=== PATIENT | male | born 1965 | race Native Hawaiian/Other Pacific Islander ===

== ENCOUNTER 2017-05-20 13:14 | Inpatient (IN) | payer OTHER ==
[~2017-05-20] VITALS: Ht 175.3 cm; Wt 102.5 kg
[2017-05-20] VITALS (11 sets, daily range): BP systolic 129–137; BP diastolic 70–93; PULSE 65–78; RESP 16; TEMP 97.9–98.2; O2SAT 92–99
[~2017-05-20 13:14] MED LIST: REMOVE OLD NITRO-DUR (NITROGLYCERIN) PATCH T-DERMAL ONE
[2017-05-20] MEDS ORDERED: ONDANSETRON HCL 4 MG/2 ML VIAL IV PUSH PRN (15:45)
[2017-05-20] MEDS ORDERED: HEPARIN-D5W 25,000 U/250 ML 250 ML IV PRN ×3 (15:45→20:30)
[2017-05-20] MEDS ORDERED: ACETAMINOPHEN 325 MG TAB PO PRN (15:45)
--- NOTE | 2017-05-20 15:45 | HHI.HP ---
[facility] Primary Care Physician No Primary Care Physician Admission Diagnosis NSTEMI Diagnoses: (1) NSTEMI (non-ST elevated myocardial infarction) Diagnosis: Principal Chief Complaint: chest pain Travel History International Travel<30 Days: No Contact w/Intl Traveler <30 Da: No Traveled to Known Affected Are: No History of Present Illness patient is a 51 y/p male with no significant past medical history who presented to ER with chest pain. he says that the pain started yesterday. pain was midsternal, pressure-type and constant and was associated with some numbness and tingling of both hands. he had some blurred vision with no nausea,vomiting or diaphoresis. he says that he took an aspirin yesterday evening which gradually subsided however this morning when he was going to work he started to have chest pain again which made him to come to ER. Review of Systems Constitutional: DENIES: Fever, Weight loss, Chills, Night Sweats Eyes: COMPLAINS OF: Blurred vision, DENIES: Diplopia, Vision loss, Double Vision Ears, nose, mouth, throat: DENIES: Tinnitus, Vertigo, Throat pain, Epistaxis Respiratory: DENIES: Apneas, Cough, Snoring, Wheezing, Hemoptysis, Sputum production, Shortness of breath Cardiovascular: COMPLAINS OF: Chest pain, DENIES: Palpitations, Syncope, Dyspnea on Exertion, PND, Lower Extremity Edema, Orthopnea, Claudication Gastrointestinal: DENIES: Abdominal pain, Black stools, Bloody stools, Constipation, Diarrhea, Nausea, Vomiting, Difficulty Swallowing, Anorexia Genitourinary: DENIES: Urinary frequency, Urgency, Hematuria, Dysuria Musculoskeletal: DENIES: Joint pain, Muscle aches, Stiffness, Joint Swelling Integumentary: DENIES: Rash Neurologic: DENIES: Abnormal gait, Headache, Localized weakness, Paresthesias, Seizures, Speech Problems, Tremor, Poor Balance Psychiatric: DENIES: Anxiety, Confusion, Mood changes, Depression, Hallucinations, Agitation, Suicidal Ideation, Homicidal Ideation, Delusions Past Family Social History Past Medical History not significant. Past Surgical History none reported. Reported Medications none reported. Allergies: Coded Allergies: No Known Allergies (Verified Allergy, Unknown, 05/20/17) Active Ordered Medications Inpatient Medications Sodium Chloride 1,000 ml @ 100 mls/hr Q10H IV ; Start 05/20/17 at 14:15 Family History father had a heart attack at his 40's. Social History no smoking or drinking. Physical Exam Vital Signs Vital Signs Date Time Temp Pulse Resp B/P (MAP) Pulse Ox O2 Delivery O2 Flow Rate FiO2 05/20/17 15:03 98.2 65 16 137/93 (108) 99 Physical Exam GENERAL: This is a well-nourished, well-developed patient, in no apparent distress. SKIN: No rashes, ecchymoses or lesions. Cool and dry. HEAD: Atraumatic. Normocephalic. No temporal or scalp tenderness. EYES: Pupils equal round and reactive. Extraocular motions intact. No scleral icterus. No injection or drainage. ENT: Nose without bleeding, purulent drainage or septal hematoma. Throat without erythema, tonsillar hypertrophy or exudate. Uvula midline. Airway patent. NECK: Trachea midline. No JVD or lymphadenopathy. Supple, nontender, no meningeal signs. CARDIOVASCULAR: Regular rate and rhythm without murmurs, gallops, or rubs. RESPIRATORY: Clear to auscultation. Breath sounds equal bilaterally. No wheezes , rales, or rhonchi. GASTROINTESTINAL: Abdomen soft, non-tender, nondistended. No hepato-splenomegaly , or palpable masses. No guarding. MUSCULOSKELETAL: Extremities without clubbing, cyanosis, or edema. No joint tenderness, effusion, or edema noted. No calf tenderness. Negative Homans sign bilaterally. NEUROLOGICAL: Awake and alert. Cranial nerves II through XII intact. Motor and sensory grossly within normal limits. Five out of 5 muscle strength in all muscle groups. Normal speech. Imaging EKG; sinus rhythm with T inversion in salomón-lateral leads. Caprini VTE Risk Assessment Caprini VTE Risk Assessment: Mod/High Risk (score >= 2) Caprini Risk Assessment Model Point Value = 1 Point Value = 2 Point Value = 3 Point Value = 5 Age 41-60 Minor surgery BMI > 25 kg/m2 Swollen legs Varicose veins or History of unexplained or recurrent spontaneous Oral contraceptives or hormone replacement Sepsis (< 1 month) Serious lung disease, including pneumonia (< 1 month) Abnormal pulmonary function Acute myocardial infarction Congestive heart failure (< 1 month) History of inflammatory bowel disease Medical patient at bed rest Age 61-74 Arthroscopic surgery Major open surgery (> 45 min) Laparoscopic surgery (> 45 min) Malignancy Confined to bed (> 72 hours) Immobilizing plaster cast Central venous access Age >= 75 History of VTE Family history of VTE Factor V Leiden Prothrombin [id number] Lupus anticoagulant Anticardiolipin antibodies Elevated serum homocysteine Heparin-induced thrombocytopenia Other congenital or acquired thrombophilia Stroke (< 1 month) Elective arthroplasty Hip, pelvis, or leg fracture Acute spinal cord injury (< 1 month) Prophylaxis Regimen Total Risk Factor Score Risk Level Prophylaxis Regimen 0-1 Low Early ambulation 2 Moderate Order ONE of the following: *Sequential Compression Device (SCD) *Heparin 5000 units SQ BID 3-4 Higher Order ONE of the following medications: *Heparin 5000 units SQ TID *Enoxaparin/Lovenox 40 mg SQ daily (WT < 150 kg, CrCl > 30 mL/min) *Enoxaparin/Lovenox 30 mg SQ daily (WT < 150 kg, CrCl > 10-29 mL/min) *Enoxaparin/Lovenox 30 mg SQ BID (WT < 150 kg, CrCl > 30 mL/min) AND/OR *Sequential Compression Device (SCD) 5 or more Highest Order ONE of the following medications: *Heparin 5000 units SQ TID (Preferred with Epidurals) *Enoxaparin/Lovenox 40 mg SQ daily (WT < 150 kg, CrCl > 30 mL/min) *Enoxaparin/Lovenox 30 mg SQ daily (WT < 150 kg, CrCl > 10-29 mL/min) *Enoxaparin/Lovenox 30 mg SQ BID (WT < 150 kg, CrCl > 30 mL/min) AND *Sequential Compression Device (SCD) Assessment and Plan Assessment and Plan A/P - NSTEMI continue with heparin drip- will add aspirin and low-dose BB- will start on nitro and morphine for chest pain. will continue to trend the cardiac enzymes. cardiology consulted and plan for cardiac cath tomorrow; NPO after midnight- continue to monitor on telemetry. check lipid panel. -DVT prophylaxis; on heparin drip. Discussed Condition With ER physician,the patient. Physician Certification 2 Midnight Certification Type: Admission for Inpatient Services Order for Inpatient Services The services are ordered in accordance with Medicare regulations or non- Medicare payer requirements, as applicable. In the case of services not specified as inpatient-only, they are appropriately provided as inpatient services in accordance with the 2-midnight benchmark. Estimated LOS (days): 2 days is the estimated time the patient will need to remain in the hospital, assuming treatment plan goals are met and no additional complications. Post-Hospital Plan: Home Therese Malhotra MD May 20, 2017 15:45
[2017-05-20] MEDS: SODIUM CHLOR 0.9% 1000 ML INJ 1,000 ML IV SCH (15:56)
--- NOTE | 2017-05-20 16:00 | PD.CONS ---
HPI Consult Requested By Primary Care Physician No Primary Care Physician History of Present Illness 51-year-old male with no significant past medical history who presented for chest pain. The patient states that he was walking into work for about 5 minutes yesterday and developed midsternal chest pressure that was 10/10 in severity and lasted for approximately one hour. He took some aspirin and felt like it relieved his symptoms some. He was still having 3/10 in severity chest discomfort when he went to bed last night and when he woke up today. He went to work today because it was a new job and developed severe worsening of the chest pain on the way into work today. He went to urgent care who referred him to the ED. He denies any associated shortness of breath or nausea. He states that for the past 2 weeks he's been having episodes of bilateral arm paresthesias. His father had an VA in his 40s. Nonsmoker. In the ED he was found to have elevated troponin and placed on heparin drip. Review of Systems Negative except as stated in history of present illness Past Family Social History Allergies: Coded Allergies: No Known Allergies (Verified Allergy, Unknown, 05/20/17) Past Medical History Patient denies Past Surgical History None reported Reported Medications Reported Meds & Active Scripts Active No Active Prescriptions or Reported Medications Active Ordered Medications Current Medications Medications (Trade) Dose Ordered Sig/Falguni Route Start Time Stop Time Status Last Admin Sodium Chloride 1,000 ml @ 100 mls/hr Q10H IV 05/20/17 14:15 Heparin Sodium/ Dextrose 250 ml @ 0 mls/hr TITRATE PRN IV 05/20/17 15:45 UNV (Tylenol) 650 mg Q4H PRN PO 05/20/17 15:45 UNV (Nitro-Dur 0.2 Mg Patch.24 Hr) 1 patch ONCE ONCE T-DERMAL 05/20/17 15:45 05/20/17 15:46 UNV (Morphine Inj) 2 mg Q4HR PRN IV PUSH 05/20/17 15:45 UNV (Zofran Inj) 4 mg Q8HR PRN IV PUSH 05/20/17 15:45 UNV Family History Father had a heart attack in his 40s Social History Never smoker. Rare alcohol use. Physical Exam Vital Signs Vital Signs Date Time Temp Pulse Resp B/P (MAP) Pulse Ox O2 Delivery O2 Flow Rate FiO2 05/20/17 15:03 98.2 65 16 137/93 (108 99 Physical Exam GENERAL: Well-developed well-nourished. In no acute distress. NECK: No carotid bruits. No JVD. CARDIOVASCULAR: Regular rate and rhythm. No murmur appreciated. RESPIRATORY: No accessory muscle use. Clear to auscultation. Breath sounds equal bilaterally. MUSCULOSKELETAL: No clubbing or cyanosis. No edema. NEUROLOGICAL: Awake and alert. Normal speech. Assessment and Plan Assessment and Plan 51-year-old male with no significant past medical history who presented for chest pain. The patient states that he was walking into work for about 5 minutes yesterday and developed midsternal chest pressure that was 10/10 in severity and lasted for approximately one hour. He took some aspirin and felt like it relieved his symptoms some. He was still having 3/10 in severity chest discomfort when he went to bed last night and when he woke up today. He went to work today because it was a new job and developed severe worsening of the chest pain on the way into work today. He went to urgent care who referred him to the ED. He denies any associated shortness of breath or nausea. He states that for the past 2 weeks he's been having episodes of bilateral arm paresthesias. His father had an VA in his 40s. Nonsmoker. In the ED he was found to have elevated troponin and placed on heparin drip. NSTEMI/unstable angina: EKG with T-wave inversions and anterior, lateral, and inferior leads. Continue heparin gtt. Nothing by mouth after midnight for cardiac catheterization in the a.m. Zaid Partida May 20, 2017 16:00
[2017-05-20 16:14] LABS: HEMATOCRIT 50.7 % (39.0-51.0); HEMOGLOBIN 17.2 GM/DL (13.0-17.0); MEAN CELL VOLUME 82.6 FL (80.0-100.0); MEAN CORPUSCULAR HEMOGLOBIN 27.9 PG (27.0-34.0); MEAN CORPUSCULAR HGB CONC 33.8 % (32.0-36.0); MEAN PLATELET VOLUME 9.4 FL (7.0-11.0); PLATELET COUNT 304 TH/MM3 (150-450); RED BLOOD COUNT 6.14 MIL/MM3 (4.50-5.90)
[2017-05-20 16:23] LABS: PROTHROMBIN TIME - PATIENT 10.4 SEC (9.8-11.6)
[2017-05-20] MEDS ORDERED: NITROGLYCERIN 0.2 MG/HR PATCH T-DERMAL ONE (17:00)
[2017-05-20] MEDS: ASPIRIN EC 81 MG TABEC PO SCH (18:29)
[2017-05-20] MEDS ORDERED: PILL SPLITTER OTHER PRN (18:30)
[2017-05-20] MEDS: METOPROLOL TARTRATE 25 MG TAB PO SCH (21:00)
[2017-05-21] VITALS (23 sets, daily range): BP systolic 112–149; BP diastolic 68–81; PULSE 56–82; RESP 16–20; TEMP 97.4–98.1; O2SAT 96–97
[2017-05-21] MEDS: SODIUM CHLOR 0.9% 1000 ML INJ 1,000 ML IV SCH (00:15)
[2017-05-21] MEDS ORDERED: MORPHINE SULFATE 2 MG/ML INJ IV PUSH ONE (01:30)
[2017-05-21 07:21] LABS: CHOLESTEROL/ HDL RATIO 4.83 RATIO; HDL CHOLESTEROL 34.1 MG/DL (40.0-60.0)
--- NOTE | 2017-05-21 07:56 | HHI.PR ---
Subjective Remarks The patient is in bed, he appears in not acute distress at this time. Says he has less chest pain or pressure no nausea or vomiting no diarrhea or constipation. The patient complains of headaches. No palpitations no diaphoresis. He complains of some epigastric pain and pressure in his chest intermittent, not at this time. Status post cardiac catheterization. With multiple vessel disease patient is CABG. Cardiothoracic surgeon was consulted. Objective Vitals Vital Signs Date Time Temp Pulse Resp B/P (MAP) Pulse Ox O2 Delivery O2 Flow Rate FiO2 05/21/17 06:00 56 05/21/17 05:00 60 05/21/17 04:00 60 05/21/17 03:00 58 05/21/17 03:00 98.1 72 16 112/68 (83) 97 05/21/17 02:00 66 05/21/17 01:00 66 05/21/17 00:00 97.9 80 16 146/75 (98) 97 05/21/17 00:00 72 05/20/17 23:00 69 05/20/17 22:00 72 05/20/17 21:00 72 05/20/17 20:00 97.9 72 16 129/70 (89) 92 05/20/17 20:00 72 05/20/17 19:00 74 05/20/17 18:07 75 05/20/17 17:38 78 05/20/17 17:03 70 05/20/17 16:25 69 05/20/17 15:15 65 05/20/17 15:03 98.2 65 16 137/93 (108) 99 I/O 05/20/17 05/20/17 05/20/17 05/21/17 05/21/17 05/21/17 07:00 15:00 23:00 07:00 15:00 23:00 Intake Total 250 ml 480 ml Output Total 660 ml Balance 250 ml -180 ml Intake Oral 250 ml 480 ml Output Urine Total 660 ml Stool Total 0 ml Result Diagram: 05/20/17 1549 Imaging Last Impressions Lower Extremity Ultrasound 05/21/17 0000 Signed Impressions: Service Date/Time: Sunday, May 21, 2017 11:34 - CONCLUSION: 1. Lower extremity mapping, as above. Ruben Brody MD Carotid Artery Ultrasound 05/21/17 0000 Signed Impressions: Service Date/Time: Sunday, May 21, 2017 11:53 - CONCLUSION: 1. No significant atherosclerotic disease or stenosis is present within either internal carotid artery. 2. There is antegrade flow in both vertebral arteries. Jayden Messina MD Objective Remarks GENERAL: This is a well-nourished, well-developed patient, in no apparent distress. CARDIOVASCULAR: Regular rate and rhythm without murmurs, gallops, or rubs. RESPIRATORY: Clear to auscultation. Breath sounds equal bilaterally. No wheezes , rales, or rhonchi. GASTROINTESTINAL: Abdomen soft, non-tender, nondistended. No hepato-splenomegaly , or palpable masses. No guarding. MUSCULOSKELETAL: Extremities without clubbing, cyanosis, or edema. No joint tenderness, effusion, or edema noted. No calf tenderness. Negative Homans sign bilaterally. NEUROLOGICAL: Awake and alert. Cranial nerves II through XII intact. Motor and sensory grossly within normal limits. Five out of 5 muscle strength in all muscle groups. Normal speech. A/P Problem List: (1) NSTEMI (non-ST elevated myocardial infarction) ICD Code: I21.4 - Non-ST elevation (NSTEMI) myocardial infarction Assessment and Plan NSTEMI EKG: sinus rhythm with T inversion in salomón-lateral leads. Continue with heparin drip- will add aspirin and low-dose BB- Continue on nitro and morphine for chest pain. Cardiology consulted and plan for cardiac cath 05/21/17 With multiple vessel disease patient is CABG. Cardiothoracic surgeon was consulted. Check lipid panel. -DVT prophylaxis: on heparin drip. Discussed Condition With patient, nurse Valencia Byrnes MD May 21, 2017 07:56
[2017-05-21] MEDS ORDERED: REMOVE OLD NITRO-DUR (NITROGLYCERIN) PATCH T-DERMAL ONE ×2 (09:00→17:00)
[2017-05-21] MEDS ORDERED: NITROGLYCERIN INJ 5 ML ONE (09:10)
[2017-05-21] MEDS ORDERED: HEPARIN SODIUM - IV 10,000 UNITS/10 ML VIAL ONE (09:10)
[2017-05-21] MEDS ORDERED: HEPARIN-NS/PF INJ 1,000 ML ONE (09:10)
[2017-05-21] MEDS ORDERED: MIDAZOLAM HCL 2 MG/2 ML VIAL ONE (09:28)
--- NOTE | 2017-05-21 10:16 | CATHPROC ---
[employer] HIS Report Study Information Study Number Admission Scheduled Start Study Start [id number] May 20 2017 2:56PM 05/21/2017 05/21/2017 [place] [facility] Cardiac Catheterization Admit Source Facility Department Emergency department [facility] Physician and Clinical Staff Initial Bladimir Roa Motor Equipment SergeantJonathon Bell RN Motor Equipment Sergeantbryn Champion RN, [place] RecordMir Henao,RT(R) Scrub Alfonso Delgado RCIS(BS) Procedures Performed Procedure Location (Site) Vessel Name Coronary Angiograms LCA Left Coronary Coronary Angiograms RCA Right Coronary L Heart Cath Equipment Time Platen Builder Up Description Size Mfg Part Number Used/Scraped TRANSDUCER, TRUWAVE [id number] 09:07 CONTRER[employer]STILL[employer] * Used W/STOCKCOCK *[id number] *[id number] *[id number] 09:07 [employer] INDUSTRIES PACK, CCL CUSTOM * Used *[id number] 09:07 [employer] SUPPORT, ARTERIAL ADULT [id number] *[id number] Used [id number] 09:07 [employer] PACER PEN, SKIN DUAL W/ RULER * Used *[id number] BAND, RADIAL COMPRESSION TR [id number] 10:03 [employer] 24CM Used SHORT 24 *[id number] SHEATH, FR6 RADIAL PRELUDE 09:07 [employer] FR 6 [id number] Used EASE 11CM [id number] 09:07 [employer] WIRE, EXCHANGE 260CM 3MMJ 260CM Used *[id number] 09:07 [employer] OMNIPAQUE, 350 MG, 150ML 150ML [id number] Used [id number] 09:07 [facility] BLANKET,WARM AIR CCL * Used *[id number] History: Current Medications Medication Dosage/Unit Route Frequency Last Date/Time Taken ASA LOPRESSOR History: Allergies Allergy Reaction No Known Allergies History: Risk Factors Family History of Hypertension Dyslipidemia Previous AL Previous Heart Failure Premature CAD No No Yes No No Prior Valve Prior PCI Prior CABG Surgery No No No Cerebrovascular Peripheral Artery Chronic Lung On Dialysis Diabetes Disease Disease Disease No No No No No History: Stress Tests Stress or Imaging Studies Performed No History: Other Current Smoker No Labs Hgb (g/dl) Hct (%) WBC (l/cumm) Platelets (thousands) 11.60-17.00 35.00-51.00 4.00-11.00 150.00-450.00 17.2 50.7 11 304 Glucose (mg/dl) BUN (mg/dl) Creatinine (mg/dl) BUN:Creatinine (1:x) 74.00-106.00 7.00-18.00 0.50-1.30 10.00-20.00 243 11 0.8 13.8 Na (meq/l) K (meq/l) Cl (meq/l) CO2 (mmol/L) Ca (mg/dl) 136.00-145.00 3.50-5.10 98.00-107.00 21.00-32.00 8.50-10.10 135 4.1 102 26 8.9 PT (sec) PTT (sec) INR (PTT:PT) 9.80-11.60 24.30-30.10 0.90-1.10 10 27 1 Troponin I (ng/ml) Troponin T (ng/ml) CPK (u/l) CPK-MB (ng/ML) 0.02-0.05 0.40-2.10 26.00-308.00 0.50-3.60 24.6 22.9 419 36.8 Medication Medication Total Dose (Bolus/Oral) Medication Total Dosage/Unit 1% XYLOCAINE 5 mL FENTANYL 50 mcg HEPARIN 5000 units NTG (IC) 200 mcg VERSED 1 mg Medications (Bolus/Oral) Medication Time Given Dosage/Unit Administered By Reason VERSED 05/21/2017 9:45:01 AM 1 mg [place] Champion RN 1 mg VERSED given in lab by [place] Champion RN in Left Antecubital via Peripheral IV. FENTANYL 05/21/2017 9:47:51 AM 50 mcg [place] Champion RN 50 mcg FENTANYL given in lab by [place] Champion RN in Left Antecubital via Peripheral IV. 1% XYLOCAINE 05/21/2017 9:48:37 AM 5 mL [place] Champion RN 5 mL 1% XYLOCAINE given in lab by [place] Champion RN in Right Radial via Subcutaneous. NTG (IC) 05/21/2017 9:51:00 AM 200 mcg Bladimir New 200 mcg NTG (IC) given in lab by Bladimir New in Right Radial via Intra-coronary. HEPARIN 05/21/2017 9:51:01 AM 5000 units [place] Champion RN 5000 units HEPARIN given in lab by [place] Champion RN in Left Antecubital via Peripheral IV. Medication (Drip) Medication Time Given Dosage/Unit Concentration/Unit Diluent (ml) Solutio n IV Solutions 05/21/2017 9:26:09 AM 0 mL (IV) 500 NaCl .9 IV Solutions given in lab by Jonathon Edwards RN in Left Antecubital via Peripheral IV. Pump/Drip Flow = 20 ml/hr using NaCl .9. Initial Case Assessment Cardiovascular HR Rhythm NIBP Chest Pain 69 Sinus 157/89 0 Edema Present Skin color Skin None Normal Warm Dry Neurological State Oriented to time-place- Alert Moves all extremities person Respiration - General Respiration Rate SpO2 (%) O2 (lpm) (B/min) 15 97 0 Final Case Assessment Cardiovascular HR Rhythm NIBP Chest Pain 70 Sinus 138/71 0 Edema Present Skin color Skin None Normal Warm Dry Circulatory - Right Pulses Dorsalis Pedis Femoral Radial 2 2 2 Scale (0,1,2,3,4,d) Scale (0,1,2,3,4,d) Neurological State Oriented to time-place- Alert Moves all extremities person Respiration - General Respiration Rate SpO2 (%) O2 (lpm) (B/min) 12 99 0 Chronological Log Time Study Chronological Log 9:16:25 Patient arrived via Bed. 9:19:30 Patient Name, D.O.B, / Armband Verified By R.N. 9:19:30 Consent signed by the physician and the patient and verified by the [facility] staff. 9:19:31 Pre-op and post- op instructions given; patient acknowledges understanding of instructions. 9:19:32 Verbal Stimulation=2 Physical Stimulation=2 Airway=2 Respiration=2 TOTAL=8. (0=absent, 1=li mited, 2=present) 9:19:33 Presedation assessment performed by [facility] RN. 9:19:35 Allens test performed on the right radial and ulnar artery. 9:19:37 Patient has been NPO for More than 6Hrs. 9:24:50 Skin Breakdown- none per patient. 9:25:42 Patient Warmer Placed on the Table. 9:25:43 Estefany Prominences Protected 9:26:09 A # 20 IV was noted in the Antecubital (left). Grade = 0 IV Solutions given in lab by Jonathon Edwards, RN in Left Antecubital via Peripheral IV. Pump/Drip Flow = 20 ml/hr using 9:26:09 NaCl .9. 9:26:11 History and physical on the chart or being dictated. Assessment: Initial Case, HR=69 BPM, Rhythm=Sinus, SOQD=545/89 mmhg, Chest Pain=0, Edema=None, Color=Normal, Skin = Warm, Dry 9:26:12 Neurological: State=Alert, Ox3, PORTILLO Respiration: Resp=15 B/min, SpO2=97 %, O2=0 lpm Vitals capture started with the following parameters, Patient=Adult, Interval=5 min, Initial Pre fzcar=149 mmHg, 9:26:15 Deflation Rate=5 mmHg, Cuff placed on Right Arm 9:26:32 Reference ECG taken 9:27:44 HR=67 bpm, AGIH=163/89 mmhg, SpO2=97.0 %, Resp=17 B/min, Pain=0, Vicky=10, Osorio=2 9:30:19 Right Radial and groin(s) prepped with 2% chlorhexidine, and draped after a 3 min. waiting t gloria. 9:31:50 HR=69 bpm, LSIQ=897/89 mmhg, SpO2=97.0 %, Resp=30 B/min, Pain=0, Vicky=10, Osorio=2 9:32:48 paged 9:34:38 Pressure channel 1 zeroed. 9:36:49 HR=73 bpm, DEHQ=612/97 mmhg, SpO2=97.0 %, Resp=13 B/min, Pain=0, Vicky=10, Osorio=2 9:41:48 HR=69 bpm, PLKB=614/89 mmhg, SpO2=94.0 %, Resp=19 B/min, Pain=0, Vicky=10, Osorio=2 9:44:37 MD arrived. 9:45:01 1 mg VERSED given in lab by [place] Champion RN in Left Antecubital via Peripheral IV. 9:46:49 HR=69 bpm, YOXY=745/82 mmhg, SpO2=94.0 %, Resp=19 B/min, Pain=0, Vicky=10, Osorio=2 Time Out. Correct patient, correct procedure, correct physician, power injector not loaded with contrast with surgical 9:47:23 team present. Time Out Concurred by and individual staff in procedure. 9:47:51 50 mcg FENTANYL given in lab by [place] Champion RN in Left Antecubital via Peripheral IV. 9:48:00 Case Start 9:48:37 5 mL 1% XYLOCAINE given in lab by [place] Champion RN in Right Radial via Subcutaneous. 9:50:44 Access site was Radial Artery. A SHEATH, FR6 RADIAL PRELUDE EASE 11CM FR 6 was advanced into the Radial (right) using the Matt perez 9:50:51 technique. A JR 5.0 INFINITI CATHETER FR 6 was advanced over a wire. OMNIPAQUE, 350 MG, 150ML 150ML was use d for 9:50:59 injections. 9:51:00 200 mcg NTG (IC) given in lab by Bladimir New in Right Radial via Intra-coronary. 9:51:01 5000 units HEPARIN given in lab by [place] Champion RN in Left Antecubital via Peripheral IV. Recorded Pressure: LV, HR=76, Condition=Condition 1 9:51:27 (Left Ventricle) LV 117/4/27 9:51:52 HR=70 bpm, UBZC=364/67 mmhg, Resp=16 B/min, Pain=0, Vicky=10, Osorio=2 Recorded Pressure: Ao, HR=71, Condition=Condition 1 9:52:13 (Aorta) Ao 127/73/96 9:52:50 The RCA was injected and visualized at various angles. OMNIPAQUE, 350 MG, 150ML 150ML used. After removing the current catheter a JL 3.5 INFINITI CATHETER FR 5 was advanced over a WIRE, EX CHANGE 260CM 9:53:49 3MMJ 260CM. Recorded Pressure: LV, Ao, HR=75, Condition=Condition 1 9:55:29 (Left Ventricle) LV 117/9/28, (Aorta) Ao 117/70/92 9:57:24 HR=72 bpm, FCAC=035/75 mmhg, SpO2=95.0 %, Resp=15 B/min, Pain=0, Vicky=10, Osorio=2 9:58:09 The LCA was injected and visualized at various angles. OMNIPAQUE, 350 MG, 150ML 150ML used. 10:01:42 Catheter was removed 10:01:48 Case End 10:01:50 HR=72 bpm, GDYW=199/71 mmhg, SpO2=96.0 %, Resp=15 B/min, Pain=0, Vicky=10, Osorio=2 Assessment: Final Case, HR=70 BPM, Rhythm=Sinus, CERV=860/71 mmhg, Chest Pain=0, Edema=None, Color=Normal, Skin = Warm, Dry 10:03:17 Right Pulses: Wilbert Ped=2, Femoral=2, Radial=2 Neurological: State=Alert, Ox3, PORTILLO Respiration: Resp=12 B/min, SpO2=99 %, O2=0 lpm 10:04:11 Cine recording checked. Radial Compression Device Used. 12 mLs of air placed in BAND, RADIAL COMPRESSION TR SHORT 24 2 4CM. Affected 10:04:17 hand 97 % O2 saturation. 10:05:43 Bedside Report will be given. 10:06:26 Vitals capture stopped. 10:06:58 A Left Heart Cath was performed. 10:07:04 [facility] Study - Contrast Media Used In Study Contrast Total Opened (mL) Total Used (mL) Total Wasted (mL) Omnipaque 150 60 90 End Study - Maximum Contrast Load Max Contrast Load (mL) 663.6 End Study - Radiation Exposure Fluoro Time (minutes) 5.8 End Study - Patient Disposition Complications Transferred To Interventional Outcome No Telemetry Bed No attempt made
--- NOTE | 2017-05-21 10:59 | MA ---
cc: JAUN BENITEZ DATE 05/21/2017 INDICATION Non-ST elevation [place]. PROCEDURE PERFORMED 1. Fluoroscopy with interpretation. 2. Coronary angiography. 3. Left heart catheterization. METHOD The risks, benefits and alternatives were discussed with the patient. The patient understood and consented to the procedure. The patient was brought into the catheterization lab and placed on the catheterization table. The right wrist was prepped and draped in sterile fashion. The right wrist was anesthetized with 2% lidocaine. The right radial artery was cannulated and a 6 Kiswahili, 7 cm sheath was placed without difficulty. 200 mcg of intra-arterial nitroglycerin was administered. 5000 units of intravenous heparin was administered. LEFT HEART CATHETERIZATION Intraventricular hemodynamics measured at 117/9 mmHg. CORONARY ANGIOGRAPHY 1. The left main was angiographically normal. 2. The left anterior descending coronary has a 80% stenosis in the proximal segment. There is a subtotally occluded small to moderate size diagonal branch at the ostium. There is a 95% stenosis in the midsegment but the distal left anterior descending coronary has mild luminal irregularities. 3. The left circumflex coronary artery is codominant and has 30% stenosis in the midsegment. There is a first obtuse marginal branch which appears small caliber size and there is stump occlusion in the proximal segment. There are some faint collaterals filling in distally but the vessel size is less than 2.0 mm in diameter. 4. The right coronary is a co-dominant vessel giving rise to a posterior descending branch. The right coronary comes off slightly anteriorly. The midsegment has 90% stenosis throughout. The posterior descending branch is widely patent. CONCLUSIONS 1. Severe three-vessel ramona coronary artery disease. 2. Thrombotically occluded small first obtuse marginal branch which is the culprit vessel. 3. Normal left-sided filling pressures. PLAN Given the diffuse nature of the disease I think coronary bypass surgery would be the best consideration. There are good targets in the right coronary and left anterior descending and possibly the diagonal branch. The first obtuse marginal branch is likely too small to graft. We will continue with aggressive medical therapy, follow-up with a 2-D echocardiogram. Will consult cardiothoracic surgery. MD AUBREY Alcantara/DEJON /10:06 AM /10:34 AM
[2017-05-21] MEDS ORDERED: CEFAZOLIN INJ 500 MG in SODIUM CHLORIDE 0.9% IRR BTL 500 ML IRRIGATION SCH (11:00)
[2017-05-21] MEDS ORDERED: METOPROLOL TARTRATE 25 MG TAB PO SCH (11:00)
[2017-05-21] MEDS ORDERED: DEXTROSE 50% IN WATER 50 ML VIAL(D50) IV PUSH PRN (11:00)
[2017-05-21] MEDS ORDERED: PAPAVERINE INJ 60 MG, NITROGLYCERIN INJ 100 MCG, DILTIAZEM INJ 100 MG in SODIUM CHLORID... IRRIGATION SCH (11:00)
[2017-05-21] MEDS ORDERED: INSULIN REGULAR (IV INFUSION) 100 UNITS in SODIUM CHLORIDE 0.9% INJ 99 ML IV PRN (11:00)
[2017-05-21] MEDS ORDERED: SODIUM CHLORIDE 0.9% FLUSH 10 ML FLUSH IV FLUSH PRN (11:00)
[2017-05-21] MEDS ORDERED: CHLORHEXIDINE GLUCONATE 4% SOLN 120 ML BTL TOPICAL SCH (11:00)
[2017-05-21] MEDS ORDERED: IOHEXOL 350 MG/ML 100 ML BTL (for Cath Lab) OTHER ONE (11:43)
[2017-05-21] MEDS: ASPIRIN EC 81 MG TABEC PO SCH (11:54)
[2017-05-21] MEDS: ACETAMINOPHEN/HYDROcodone 325 MG/5 MG TAB PO PRN ×2 (11:54→17:11)
[2017-05-21] MEDS: ATORVASTATIN 40 MG TAB PO SCH (11:54)
[2017-05-21] MEDS: METOPROLOL TARTRATE 25 MG TAB PO SCH ×2 (11:54→21:10)
--- NOTE | 2017-05-21 12:27 | RADRPT ---
EXAM DATE/TIME: 05/21/2017 11:27 [facility] COMPARISON: No previous studies available for comparison. INDICATIONS : Preop cardiac surgery. MEDICAL HISTORY : Myocardial infarction. Chest pain. SURGICAL HISTORY : Cardiac cath. ENCOUNTER: Initial ACUITY: 1 day PAIN SCORE: 0/10 LOCATION: Bilateral leg. TECHNIQUE: Venous ultrasound of the left and right leg was performed from the inguinal ligament to the proximal calf. Real-time, color Doppler and spectral tracing, compression and augmentation techniques were us ed. FINDINGS: RIGHT LEG: There is normal compressibility of the deep venous system from the inguinal region to the proximal ca lf. No echogenic clot is seen in the lumen of the common femoral, femoral, popliteal, and posterior tibial veins. There is a normal response of the venous system to proximal and distal augmentation an d respiration. LEFT LEG: There is normal compressibility of the deep venous system from the inguinal region to the proximal ca lf. No echogenic clot is seen in the lumen of the common femoral, femoral, popliteal, and posterior tibial veins. There is a normal response of the venous system to proximal and distal augmentation an d respiration. CONCLUSION: No DVT is identified within either lower extremity. Jayden Messina MD on May 21, 2017 at 12:24 Board Certified Radiologist. This report was verified electronically.
--- NOTE | 2017-05-21 12:54 | PD.CAR.PN ---
CVT Progress Note Subjective/Hospital Course: Pt examined and chart reviewed. Full consult dictated. Planned OR on Wednesday as long as he remains pain-free. Awaiting ECHO results. Thanks!!!! Objective: Vital Signs Date Time Temp Pulse Resp B/P (MAP) Pulse Ox O2 Delivery O2 Flow Rate FiO2 05/21/17 06:00 56 05/21/17 05:00 60 05/21/17 04:00 60 05/21/17 03:00 58 05/21/17 03:00 98.1 72 16 112/68 (83) 97 05/21/17 02:00 66 05/21/17 01:00 66 05/21/17 00:00 97.9 80 16 146/75 (98) 97 05/21/17 00:00 72 05/20/17 23:00 69 05/20/17 22:00 72 05/20/17 21:00 72 05/20/17 20:00 97.9 72 16 129/70 (89) 92 05/20/17 20:00 72 05/20/17 19:00 74 05/20/17 18:07 75 05/20/17 17:38 78 05/20/17 17:03 70 05/20/17 16:25 69 05/20/17 15:15 65 05/20/17 15:03 98.2 65 16 137/93 (108) 99 Labs: Laboratory Tests Test 05/21/17 04:43 05/21/17 11:10 Triglycerides Level 108 MG/DL (42-150) Cholesterol Level 165 MG/DL (120-200) LDL Cholesterol 109 MG/DL (0-99) HDL Cholesterol 34.1 MG/DL (40.0-60.0) Cholesterol/HDL Ratio 4.83 RATIO Activated Partial Thromboplast Time 71.3 SEC (24.3-30.1) Result Diagram: 05/20/17 1549 Marcelo Perrin MD May 21, 2017 12:54
--- NOTE | 2017-05-21 13:01 | RADRPT ---
EXAM DATE/TIME: 05/21/2017 11:53 [facility] COMPARISON: No previous studies available for comparison. INDICATIONS : PreOp Cardiac Surgery. MEDICAL HISTORY : Myocardial infarction. Chest pain. SURGICAL HISTORY : Cardiac cath. ENCOUNTER: Initial ACUITY: 1 day PAIN SCORE: 0/10 LOCATION: Bilateral neck PEAK SYSTOLIC VELOCITIES (cm/sec): ICA/CCA RATIO: Right: 0.9 Left: 0.8 ICA: Right: 62 Left: 63 CCA: Right: 66 Left: 78 ECA: Right: 81 Left: 90 VERTEBRAL: Right: 33 antegrade Left: 33 antegrade Elevated flow velocities and ICA/CCA ratios have been found to correlate with increased degrees of vessel stenosis, calculated as percentage of diameter relative to a normal segment of distal ICA/CCA FINDINGS: RIGHT CAROTID: No significant stenosis is visualized. There is mild noncalcified plaque in the distal common caroti d artery. The waveforms are within normal limits. LEFT CAROTID: No significant stenosis is visualized. The waveforms are within normal limits. VERTEBRAL ARTERIES: Antegrade flow is seen in both vertebral arteries. MISCELLANEOUS: None. CONCLUSION: 1. No significant atherosclerotic disease or stenosis is present within either internal carotid arter y. 2. There is antegrade flow in both vertebral arteries. Jayden Messina MD on May 21, 2017 at 12:57 Board Certified Radiologist. This report was verified electronically.
--- NOTE | 2017-05-21 13:04 | RADRPT ---
EXAM DATE/TIME: 05/21/2017 11:34 [facility] COMPARISON: No previous studies available for comparison. INDICATIONS : PreOp Cardiac Surgery. MEDICAL HISTORY : Myocardial infarction. Chest pain. SURGICAL HISTORY : Cardiac cath. ENCOUNTER: Initial ACUITY: 1 day PAIN SCORE: 0/10 LOCATION: Bilateral legs. GREATER SAPHENOUS VEIN THIGH: PROXIMAL: Right 5 mm Left 5 mm MID: Right 3 mm Left 3 mm DISTAL: Right 2 mm Left 2 mm CALF: PROXIMAL: Right Non-visualized Left 1 mm MID: Right Non-visualized Left Non-visualized DISTAL: Right Non-visualized Left Non-visualized FINDINGS: The venous system of the lower extremities are patent by color Doppler imaging. Measurements of the leg veins (in mm) are listed above. CONCLUSION: 1. Lower extremity mapping, as above. Ruben Brody MD on May 21, 2017 at 13:01 Board Certified Radiologist. This report was verified electronically.
[2017-05-21] MEDS: MORPHINE SULFATE 2 MG/ML INJ IV PUSH PRN ×2 (13:31→22:46)
--- NOTE | 2017-05-21 13:45 | MB ---
cc: BLADIMIR ALONSO ROHIT K. M.D. KHANNA, SOHIT K. MD DATE OF CONSULTATION 05/21/[address] Bladimir alonso REASON FOR CONSULTATION Acute myocardial infarction with multi-vessel coronary disease. HISTORY Mr. Bryan is a very pleasant 51-year gentleman with no identifiable prior history who presents with a two-week history of bilateral upper extremity paresthesias, numbness and tingling with a 24-hour history of crescendo chest pain which developed on his way to work. The patient was seen in the Urgent Care and transferred to the emergency department where he was noted to have severely elevated troponins and evidence of a non-ST elevation myocardial infarction. The patient was admitted at that time and underwent a coronary angiogram today which revealed severe three-vessel coronary artery disease. I am now being consulted for surgical revascularization therapy. At the present time, he remains pain free, hemodynamically stable with no evidence of ongoing ischemia. PAST MEDICAL AND SURGICAL HISTORY Unremarkable with no identifiable issues. ALLERGIES The patient reports no KNOWN DRUG ALLERGIES. MEDICATIONS He is currently on no medications. FAMILY HISTORY Significant for premature coronary artery disease with the father having a myocardial infarction in his 40s. SOCIAL HISTORY Denies any history of smoking, alcohol use or illicit drug use. REVIEW OF SYSTEMS As above, all other parameters are negative. PHYSICAL EXAM Today, he is 175 cm tall, weighs 106 kg, blood pressure is 112/68 with a heart rate of 56 which is regular, respiratory rate is 18 and afebrile. HEENT: Normocephalic, atraumatic. Pupils are round and reactive. Extraocular muscles intact. No cervical lymphadenopathy, carotid bruits or JVD. CARDIOVASCULAR: Regular rate and rhythm. Normal S1-S2 without gallops, rubs or murmurs. LUNGS: Clear to auscultation bilaterally with good exchange. ABDOMEN: Soft, nontender and nondistended with normoactive bowel sounds. No hepatosplenomegaly. EXTREMITIES: Bilateral lower extremity pulses are intact without cyanosis, clubbing or edema. No venous varicosities. NEUROLOGIC: Intact with no focal deficits. IMPRESSION 1. Acute myocardial infarction - non-STEMI 2. Multivessel coronary artery disease. 3. 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 PLAN The clinical and angiographic findings were discussed in detail with the patient today, his and other family members. Therapeutic options available including coronary artery bypass grafting was recommended. I agree with Dr. Alonso that he will maximally benefit from bypass of his LAD, RPDA, as well as potentially a small first diagonal branch, although that will be explored intraoperatively and determined if it is a bypassable candidate. The risks, complications, and benefits of the surgical procedure were reviewed in detail and all questions answered. They appear to comprehend the given information and are agreeable with the planned operation. We will plan on proceeding with the surgical procedure as described above on Wednesday to allow his heart to recover from the acute event as well as to complete his workup including an echocardiogram to ascertain his ventricular function. In the meantime, we will also obtain vein mapping, PFTs and carotid duplex imaging as well. Thank you for allowing me to participate this patient's care. Marcelo RAMIREZ /12:58 PM /1:11 PM ELÍAS
[2017-05-21 17:33] LABS: HEMOGLOBIN A1C 9.4 % (4.3-6.0)
[2017-05-21 17:33] LABS: HEMATOCRIT 44.2 % (39.0-51.0); MEAN CELL VOLUME 83.1 FL (80.0-100.0); MEAN CORPUSCULAR HEMOGLOBIN 28.1 PG (27.0-34.0); MEAN CORPUSCULAR HGB CONC 33.8 % (32.0-36.0); MEAN PLATELET VOLUME 9.6 FL (7.0-11.0); PLATELET COUNT 277 TH/MM3 (150-450); RED BLOOD COUNT 5.32 MIL/MM3 (4.50-5.90); RED CELL DISTRIBUTION WIDTH 13.6 % (11.6-17.2); WHITE BLOOD COUNT 10.9 TH/MM3 (4.0-11.0)
[2017-05-21 17:48] LABS: PROTHROMBIN TIME - PATIENT 10.3 SEC (9.8-11.6)
[2017-05-21] MEDS: HEPARIN-D5W 25,000 U/250 ML 250 ML IV PRN (18:43)
--- NOTE | 2017-05-21 19:41 | EKG ---
Date Performed: 05/20/2017 Time Performed: 16:29:26 PTAGE: 51 years EKG: Sinus rhythm . Leftward axis Extensive ST-T changes may be due to myocardial ischemia Abnormal ECG Since the prior tracing, there has been no significant change PREVIOUS TRACING : 05/20/2017 16.28 DOCTOR: Mehdi Trevizo Interpretating Date/Time 05/21/2017 19:41:09
[2017-05-21] MEDS: SODIUM CHLORIDE 0.9% FLUSH 10 ML FLUSH IV FLUSH SCH (21:10)
--- NOTE | 2017-05-21 21:23 | EKG ---
Date Performed: 05/20/2017 Time Performed: 20:38:18 PTAGE: 51 years EKG: Sinus rhythm Left axis deviation Marked T wave abnormality Clinical correlation is needed for possible ischemia T his could also be related to a central neurological event Abnormal ECG NO PREVIOUS TRACING DOCTOR: Mehdi Trevizo Interpretating Date/Time 05/21/2017 21:22:40
[2017-05-21] MEDS: MUPIROCIN 2% OINT 1 APPLIC/GM SYR EACH NARE SCH (21:27)
[2017-05-21 22:33] LABS: BILIRUBIN, URINE NEG (NEG); BLOOD, URINE NEG (NEG); GLUCOSE,URINE 150 mg/dL (NEG); KETONE, URINE NEG (NEG); NITRITE,URINE NEG (NEG); PH, URINE 5.5 (5.0-8.5); URINE COLOR YELLOW (YELLW/STRAW); URINE LEUKOCYTE ESTERASE NEG (NEG)
[2017-05-22] VITALS (25 sets, daily range): BP systolic 132–162; BP diastolic 77–96; PULSE 68–86; RESP 18–20; TEMP 98.2–98.8; O2SAT 96–98
[2017-05-22] MEDS: MORPHINE SULFATE 2 MG/ML INJ IV PUSH PRN ×3 (04:46→21:17)
[2017-05-22 06:00] LABS: AUTOMATED NEUTROPHIL # 5.6 TH/MM3 (1.8-7.7); BASOPHIL # 0.1 TH/MM3 (0-0.2); BASOPHIL % 0.8 % (0.0-2.0); EOSINOPHIL # 0.5 TH/MM3 (0-0.4); EOSINOPHIL % 4.7 % (0.0-4.0); HEMATOCRIT 45.9 % (39.0-51.0); HEMOGLOBIN 15.8 GM/DL (13.0-17.0); LYMPH % 30.2 % (9.0-44.0); LYMPHOCYTE # 2.9 TH/MM3 (1.0-4.8); MEAN CELL VOLUME 82.5 FL (80.0-100.0); MEAN CORPUSCULAR HEMOGLOBIN 28.3 PG (27.0-34.0); MEAN CORPUSCULAR HGB CONC 34.4 % (32.0-36.0); MEAN PLATELET VOLUME 9.6 FL (7.0-11.0); MONO % 6.5 % (0.0-8.0); MONOCYTE # 0.6 TH/MM3 (0-0.9); NEUT % 57.8 % (16.0-70.0); PLATELET COUNT 262 TH/MM3 (150-450); RED BLOOD COUNT 5.56 MIL/MM3 (4.50-5.90); RED CELL DISTRIBUTION WIDTH 13.8 % (11.6-17.2); WHITE BLOOD COUNT 9.7 TH/MM3 (4.0-11.0)
[2017-05-22 06:16] LABS: BICARBONATE 24.6 MEQ/L (21.0-32.0); CALCIUM 8.7 MG/DL (8.5-10.1); CREATININE 0.73 MG/DL (0.60-1.30)
[2017-05-22] MEDS: METOPROLOL TARTRATE 25 MG TAB PO SCH ×2 (08:31→19:45)
[2017-05-22] MEDS: ASPIRIN EC 81 MG TABEC PO SCH (08:31)
[2017-05-22] MEDS: SODIUM CHLORIDE 0.9% FLUSH 10 ML FLUSH IV FLUSH SCH ×2 (08:31→19:45)
[2017-05-22] MEDS: MUPIROCIN 2% OINT 1 APPLIC/GM SYR EACH NARE SCH ×2 (08:31→19:45)
[2017-05-22] MEDS: ATORVASTATIN 40 MG TAB PO SCH (08:31)
--- NOTE | 2017-05-22 08:36 | HHI.PR ---
Subjective Remarks Patient in the bed says he had chest pain and bilateral arm pain in the morning however he feels much better after she received morphine. No diaphoresis, nausea, lightheadedness, palpitations. No fever or chills, no nausea or vomiting no diarrhea or constipation. Objective Vitals Vital Signs Date Time Temp Pulse Resp B/P (MAP) Pulse Ox O2 Delivery O2 Flow Rate FiO2 05/22/17 06:00 74 05/22/17 05:00 72 05/22/17 04:00 98.2 75 18 139/84 (102) 97 05/22/17 04:00 75 05/22/17 03:00 73 05/22/17 02:00 70 05/22/17 01:00 71 05/22/17 00:00 98.4 68 18 132/77 (95) 98 05/22/17 00:00 68 05/22/17 00:00 Room Air 05/21/17 23:00 69 05/21/17 22:00 72 05/21/17 21:00 68 05/21/17 20:00 98.0 78 18 149/81 (103) 97 05/21/17 20:00 78 05/21/17 18:00 70 05/21/17 17:00 68 05/21/17 16:00 70 05/21/17 15:00 74 05/21/17 15:00 97.6 70 20 121/76 (91) 96 05/21/17 14:00 72 05/21/17 13:00 68 05/21/17 12:00 64 05/21/17 11:30 97.8 61 16 114/68 (83) 97 05/21/17 11:00 63 05/21/17 09:00 82 I/O 05/21/17 05/21/17 05/21/17 05/22/17 05/22/17 05/22/17 07:00 15:00 23:00 07:00 15:00 23:00 Intake Total 480 ml 480 ml 830 ml Output Total 660 ml 800 ml 1000 ml Balance -180 ml -320 ml -170 ml Intake Oral 480 ml 480 ml 720 ml IV Total 110 ml Output Urine Total 660 ml 800 ml 1000 ml Stool Total 0 ml # Bowel Movements 0 Result Diagram: 05/22/17 0450 05/22/17 0450 Imaging Last Impressions Lower Extremity Ultrasound 05/21/17 0000 Signed Impressions: Service Date/Time: Sunday, May 21, 2017 11:34 - CONCLUSION: 1. Lower extremity mapping, as above. Ruben Brody MD Carotid Artery Ultrasound 05/21/17 0000 Signed Impressions: Service Date/Time: Sunday, May 21, 2017 11:53 - CONCLUSION: 1. No significant atherosclerotic disease or stenosis is present within either internal carotid artery. 2. There is antegrade flow in both vertebral arteries. Jayden Messina MD Objective Remarks GENERAL: This is a well-nourished, well-developed patient, in no apparent distress. CARDIOVASCULAR: Regular rate and rhythm without murmurs, gallops, or rubs. RESPIRATORY: Clear to auscultation. Breath sounds equal bilaterally. No wheezes , rales, or rhonchi. GASTROINTESTINAL: Abdomen soft, non-tender, nondistended. No hepato-splenomegaly , or palpable masses. No guarding. MUSCULOSKELETAL: Extremities without clubbing, cyanosis, or edema. No joint tenderness, effusion, or edema noted. No calf tenderness. Negative Homans sign bilaterally. NEUROLOGICAL: Awake and alert. Cranial nerves II through XII intact. Motor and sensory grossly within normal limits. Five out of 5 muscle strength in all muscle groups. Normal speech. A/P Problem List: (1) NSTEMI (non-ST elevated myocardial infarction) ICD Code: I21.4 - Non-ST elevation (NSTEMI) myocardial infarction Assessment and Plan NSTEMI EKG: sinus rhythm with T inversion in salomón-lateral leads. Continue with heparin drip- will add aspirin and low-dose BB- Continue on nitro and morphine for chest pain. Cardiology consulted and plan for cardiac cath 05/21/17 With multiple vessel disease patient is CABG. Cardiothoracic surgeon was consulted. Lipid panel reviewed, start statin if LFT normal Uncontrolled diabetes mellitus and will be normal see 9.4. Insulin sliding scale, Accu-Cheks. visual educator, dietary consult. Discussed with the patient length plan. We might consider starting long acting insulin Levemir. -DVT prophylaxis: on heparin drip. Discussed Condition With patient, nurse Valencia Byrnes MD May 22, 2017 08:36
--- NOTE | 2017-05-22 10:14 | PD.CAR.PN ---
CVT Progress Note Subjective/Hospital Course: 51 yo male presenting with CP and bilateral UE paresthesias. Noted to have NSTEMI and multi-vessel CAD. 2/3 Had brief episode of CP last night. Pain-free presently OR Wednesday am Awaiting ECHO report Objective: Vital Signs Date Time Temp Pulse Resp B/P (MAP) Pulse Ox O2 Delivery O2 Flow Rate FiO2 05/22/17 10:00 78 05/22/17 09:00 72 05/22/17 08:00 68 05/22/17 08:00 96 Room Air 05/22/17 07:30 98.7 68 20 134/81 (98) 96 05/22/17 07:00 86 05/22/17 06:00 74 05/22/17 05:00 72 05/22/17 04:00 98.2 75 18 139/84 (102) 97 05/22/17 04:00 75 05/22/17 03:00 73 05/22/17 02:00 70 05/22/17 01:00 71 05/22/17 00:00 98.4 68 18 132/77 (95) 98 05/22/17 00:00 68 05/22/17 00:00 Room Air 05/21/17 23:00 69 05/21/17 22:00 72 05/21/17 21:00 68 05/21/17 20:00 98.0 78 18 149/81 (103) 97 05/21/17 20:00 78 05/21/17 18:00 70 05/21/17 17:00 68 05/21/17 16:00 70 05/21/17 15:00 74 05/21/17 15:00 97.6 70 20 121/76 (91) 96 05/21/17 14:00 72 05/21/17 13:00 68 05/21/17 12:00 64 05/21/17 11:30 97.8 61 16 114/68 (83) 97 05/21/17 11:00 63 Labs: Laboratory Tests Test 05/21/17 22:38 05/22/17 04:50 Activated Partial Thromboplast Time 31.1 SEC (24.3-30.1) 30.8 SEC (24.3-30.1) White Blood Count 9.7 TH/MM3 (4.0-11.0) Red Blood Count 5.56 MIL/MM3 (4.50-5.90) Hemoglobin 15.8 GM/DL (13.0-17.0) Hematocrit 45.9 % (39.0-51.0) Mean Corpuscular Volume 82.5 FL (80.0-100.0) Mean Corpuscular Hemoglobin 28.3 PG (27.0-34.0) Mean Corpuscular Hemoglobin Concent 34.4 % (32.0-36.0) Red Cell Distribution Width 13.8 % (11.6-17.2) Platelet Count 262 TH/MM3 (150-450) Mean Platelet Volume 9.6 FL (7.0-11.0) Neutrophils (%) (Auto) 57.8 % (16.0-70.0) Lymphocytes (%) (Auto) 30.2 % (9.0-44.0) Monocytes (%) (Auto) 6.5 % (0.0-8.0) Eosinophils (%) (Auto) 4.7 % (0.0-4.0) Basophils (%) (Auto) 0.8 % (0.0-2.0) Neutrophils # (Auto) 5.6 TH/MM3 (1.8-7.7) Lymphocytes # (Auto) 2.9 TH/MM3 (1.0-4.8) Monocytes # (Auto) 0.6 TH/MM3 (0-0.9) Eosinophils # (Auto) 0.5 TH/MM3 (0-0.4) Basophils # (Auto) 0.1 TH/MM3 (0-0.2) CBC Comment DIFF FINAL Differential Comment Blood Urea Nitrogen 11 MG/DL (7-18) Creatinine 0.73 MG/DL (0.60-1.30) Random Glucose 167 MG/DL (74-106) Calcium Level 8.7 MG/DL (8.5-10.1) Sodium Level 135 MEQ/L (136-145) Potassium Level 3.8 MEQ/L (3.5-5.1) Chloride Level 102 MEQ/L (98-107) Carbon Dioxide Level 24.6 MEQ/L (21.0-32.0) Anion Gap 8 MEQ/L (5-15) Estimat Glomerular Filtration Rate 113 ML/MIN (>89) Result Diagram: 05/22/1744905/22/170 (1) NSTEMI (non-ST elevated myocardial infarction) Marcelo Perrin MD May 22, 2017 10:14
[2017-05-22] MEDS ORDERED: DEXTROSE 50% IN WATER 50 ML VIAL(D50) IV PUSH PRN (10:30)
[2017-05-22] MEDS ORDERED: GLUCAGON 1 MG/ML VIAL OTHER PRN (10:30)
--- NOTE | 2017-05-22 12:20 | RADRPT ---
EXAM DATE/TIME: 05/22/2017 12:11 [facility] COMPARISON: No previous studies available for comparison. INDICATIONS : Evaluate for pneumonia, pneumothorax and commuicable diseases. Pre-op for CABG. MEDICAL HISTORY : Myocardial infarction. Chest pain. SURGICAL HISTORY : Cardiac cath. ENCOUNTER: Initial ACUITY: 1 day PAIN SCORE: 0/10 LOCATION: Bilateral chest FINDINGS: PA and lateral views of the chest demonstrate the lungs to be symmetrically aerated without evidence of mass, infiltrate or effusion. The cardiomediastinal contours are unremarkable. Osseous structure s are intact. CONCLUSION: No acute disease. Amilcar Aguilar MD on May 22, 2017 at 12:15 Board Certified Radiologist. This report was verified electronically.
--- NOTE | 2017-05-22 12:39 | PD.CAR.PN ---
CVT Progress Note Subjective/Hospital Course: Pending ECHO report: Risk Model and Variables - STS Adult Cardiac Surgery Database Version 2.81 RISK SCORES About the STS Risk Calculator Procedure: CAB Only Risk of Mortality: 0.302% Morbidity or Mortality: 7.01% Long Length of Stay: 1.876% Short Length of Stay: 65.114% Permanent Stroke: 0.405% Prolonged Ventilation: 4.808% DSW Infection: 0.248% Renal Failure: 0.626% Reoperation: 3.496% Objective: Vital Signs Date Time Temp Pulse Resp B/P (MAP) Pulse Ox O2 Delivery O2 Flow Rate FiO2 05/22/17 10:00 78 05/22/17 09:00 72 05/22/17 08:00 68 05/22/17 08:00 96 Room Air 05/22/17 07:30 98.7 68 20 134/81 (98) 96 05/22/17 07:00 86 05/22/17 06:00 74 05/22/17 05:00 72 05/22/17 04:00 98.2 75 18 139/84 (102) 97 05/22/17 04:00 75 05/22/17 03:00 73 05/22/17 02:00 70 05/22/17 01:00 71 05/22/17 00:00 98.4 68 18 132/77 (95) 98 05/22/17 00:00 68 05/22/17 00:00 Room Air 05/21/17 23:00 69 05/21/17 22:00 72 05/21/17 21:00 68 05/21/17 20:00 98.0 78 18 149/81 (103) 97 05/21/17 20:00 78 05/21/17 18:00 70 05/21/17 17:00 68 05/21/17 16:00 70 05/21/17 15:00 74 05/21/17 15:00 97.6 70 20 121/76 (91) 96 05/21/17 14:00 72 05/21/17 13:00 68 Labs: Laboratory Tests Test 05/22/17 04:50 05/22/17 10:37 White Blood Count 9.7 TH/MM3 (4.0-11.0) Red Blood Count 5.56 MIL/MM3 (4.50-5.90) Hemoglobin 15.8 GM/DL (13.0-17.0) Hematocrit 45.9 % (39.0-51.0) Mean Corpuscular Volume 82.5 FL (80.0-100.0) Mean Corpuscular Hemoglobin 28.3 PG (27.0-34.0) Mean Corpuscular Hemoglobin Concent 34.4 % (32.0-36.0) Red Cell Distribution Width 13.8 % (11.6-17.2) Platelet Count 262 TH/MM3 (150-450) Mean Platelet Volume 9.6 FL (7.0-11.0) Neutrophils (%) (Auto) 57.8 % (16.0-70.0) Lymphocytes (%) (Auto) 30.2 % (9.0-44.0) Monocytes (%) (Auto) 6.5 % (0.0-8.0) Eosinophils (%) (Auto) 4.7 % (0.0-4.0) Basophils (%) (Auto) 0.8 % (0.0-2.0) Neutrophils # (Auto) 5.6 TH/MM3 (1.8-7.7) Lymphocytes # (Auto) 2.9 TH/MM3 (1.0-4.8) Monocytes # (Auto) 0.6 TH/MM3 (0-0.9) Eosinophils # (Auto) 0.5 TH/MM3 (0-0.4) Basophils # (Auto) 0.1 TH/MM3 (0-0.2) CBC Comment DIFF FINAL Differential Comment Activated Partial Thromboplast Time 30.8 SEC (24.3-30.1) 33.2 SEC (24.3-30.1) Blood Urea Nitrogen 11 MG/DL (7-18) Creatinine 0.73 MG/DL (0.60-1.30) Random Glucose 167 MG/DL (74-106) Calcium Level 8.7 MG/DL (8.5-10.1) Sodium Level 135 MEQ/L (136-145) Potassium Level 3.8 MEQ/L (3.5-5.1) Chloride Level 102 MEQ/L (98-107) Carbon Dioxide Level 24.6 MEQ/L (21.0-32.0) Anion Gap 8 MEQ/L (5-15) Estimat Glomerular Filtration Rate 113 ML/MIN (>89) Result Diagram: 2/3/18 0450 05/22/17 0450 (1) NSTEMI (non-ST elevated myocardial infarction) Marcelo Perrin MD May 22, 2017 12:39
[2017-05-22 13:46] LABS: ALBUMIN 3.2 GM/DL (3.4-5.0); DIRECT BILIRUBIN ADULT 0.1 MG/DL (0.0-0.2)
[2017-05-22 13:48] LABS: INDIRECT BILIRUBIN 0.4 MG/DL (0.0-0.8); TOTAL BILIRUBIN ADULT 0.5 MG/DL (0.2-1.0); TOTAL PROTEIN 8.8 GM/DL (6.4-8.2)
--- NOTE | 2017-05-22 14:38 | ECHRPT ---
Indication: pre-op CONCLUSIONS Normal left ventricular size. The left ventricular systolic function is moderately reduced with an estimated ejection fraction in the range of 40-45%. Akinetic apical cap wall motion. There is a possible left ventricular apical thrombus noted. Mild mitral valve regurgitation. No aortic valve regurgitation. No aortic valve stenosis. There is mild tricuspid valve regurgitation. The pulmonary valve is not well visualized. Ordering physican notified of thromus. BP: / HR: Rhythm: MEASUREMENTS (Male / Female) Normal Values Technical Quality:Technically difficult study 2D ECHO LV Diastolic Diameter PLAX 4.2 cm 4.2 - 5.9 / 3.9 - 5.3 cm LV Systolic Diameter PLAX 3.5 cm IVS Diastolic Thickness 1.0 cm 0.6 - 1.0 / 0.6 - 0.9 cm LVPW Diastolic Thickness 1.0 cm 0.6 - 1.0 / 0.6 - 0.9 cm LV Relative Wall Thickness 0.5 RV Internal Dim ED PLAX 3.0 cm M-MODE Aortic Root Diameter MM 3.5 cm LA Systolic Diameter MM 3.1 cm LA Ao Ratio MM 0.9 AV Cusp Separation MM 1.8 cm DOPPLER LV E' Lateral Velocity 8.3 cm/s LV E' Septal Velocity 6.8 cm/s FINDINGS LEFT VENTRICLE Normal left ventricular size. The left ventricular systolic function is moderately reduced with an estimated ejection fraction in the range of 40-45%. Akinetic apical cap wall motion. There is a possible left ventricular apical thrombus noted. RIGHT VENTRICLE Normal right ventricular size and systolic function. LEFT ATRIUM The left atrial size is normal. RIGHT ATRIUM The right atrial size is normal. ATRIAL SEPTUM Normal atrial septal thickness without atrial level shunting by limited color doppler interrogation. AORTA The aortic root and proximal ascending aorta are normal in size on limited imaging. MITRAL VALVE Structurally normal mitral valve. Mild mitral valve regurgitation. AORTIC VALVE No aortic valve regurgitation. No aortic valve stenosis. Trileaflet aortic valve. TRICUSPID VALVE Structurally normal tricuspid valve. There is mild tricuspid valve regurgitation. PULMONARY VALVE The pulmonary valve is not well visualized. VESSELS The inferior vena cava is normal in size. PERICARDIUM No pericardial effusion. Darrell Murrell MD (Electronically Signed) Final Date:22 May 2017 14:37
--- NOTE | 2017-05-22 15:28 | EKG ---
Date Performed: 05/22/2017 Time Performed: 05:14:18 PTAGE: 51 years EKG: Diffuse ST-T wave change anterolaterally and inferiorly, ischemia should be considered. Axi s borderline leftward Compared to previous tracing, the ST-T changes persist. Clinical correlation st rongly recommended. Abnormal ECG PREVIOUS TRACING : 05/20/2017 20.38.18 DOCTOR: Ralph Castro Interpretating Date/Time 05/22/2017 15:27:50
[2017-05-23] VITALS (23 sets, daily range): BP systolic 140–157; BP diastolic 82–95; PULSE 64–96; RESP 16–20; TEMP 98–98.5; O2SAT 95–98
[2017-05-23] MEDS: HEPARIN-D5W 25,000 U/250 ML 250 ML IV PRN (01:51)
[2017-05-23] MEDS: MORPHINE SULFATE 2 MG/ML INJ IV PUSH PRN (03:31)
[2017-05-23 08:09] LABS: HEMATOCRIT 45.5 % (39.0-51.0); HEMOGLOBIN 15.6 GM/DL (13.0-17.0); MEAN CELL VOLUME 82.8 FL (80.0-100.0); MEAN CORPUSCULAR HEMOGLOBIN 28.4 PG (27.0-34.0); MEAN CORPUSCULAR HGB CONC 34.3 % (32.0-36.0); MEAN PLATELET VOLUME 9.6 FL (7.0-11.0); PLATELET COUNT 273 TH/MM3 (150-450); RED CELL DISTRIBUTION WIDTH 13.6 % (11.6-17.2); WHITE BLOOD COUNT 8.9 TH/MM3 (4.0-11.0)
[2017-05-23 08:26] LABS: ALBUMIN 3.3 GM/DL (3.4-5.0); AST (GOT) 29 U/L (15-37); BICARBONATE 27.2 MEQ/L (21.0-32.0); BLOOD UREA NITROGEN 11 MG/DL (7-18); CALCIUM 8.6 MG/DL (8.5-10.1); CHLORIDE 102 MEQ/L (98-107); CREATININE 0.79 MG/DL (0.60-1.30); GLOMERULAR FILTRATION RATE 103 ML/MIN (>89); GLUCOSE,RANDOM 148 MG/DL (74-106); SODIUM (NA) 136 MEQ/L (136-145)
[2017-05-23 08:29] LABS: ALKALINE PHOSPHATASE 118 U/L (45-117); ALT (GPT) 27 U/L (12-78); TOTAL BILIRUBIN ADULT 0.7 MG/DL (0.2-1.0); TOTAL PROTEIN 8.8 GM/DL (6.4-8.2)
--- NOTE | 2017-05-23 08:41 | HHI.PR ---
Subjective Remarks The patient is in bed, says he doesn't have any chest pain at this time however he experienced some right shoulder pain. No shortness of breath, diaphoresis, nausea. He was nauseated earlier today and had some epigastric pain as well. He is able to eat. No fever or chills no cough. No lower extremity edema. Objective Vitals Vital Signs Date Time Temp Pulse Resp B/P (MAP) Pulse Ox O2 Delivery O2 Flow Rate FiO2 05/23/17 08:09 97 Room Air 05/23/17 07:00 98.5 91 16 157/82 (107) 97 05/23/17 06:00 78 05/23/17 05:00 76 05/23/17 04:00 70 05/23/17 04:00 98.4 70 18 140/82 (101) 96 05/23/17 04:00 Room Air 05/23/17 03:00 72 05/23/17 02:00 74 05/23/17 01:00 75 05/23/17 00:00 98.0 77 20 146/83 (104) 97 05/23/17 00:00 77 05/23/17 00:00 Room Air 05/22/17 23:00 79 05/22/17 22:00 74 05/22/17 21:00 85 05/22/17 20:00 83 05/22/17 20:00 Room Air 05/22/17 20:00 98.2 83 20 162/96 (118) 97 05/22/17 18:00 80 05/22/17 17:00 78 05/22/17 16:00 80 05/22/17 15:33 98.8 80 20 139/78 (98) 98 05/22/17 15:00 86 05/22/17 14:00 82 05/22/17 13:00 80 05/22/17 12:00 84 05/22/17 12:00 98.2 84 20 149/86 (107) 98 05/22/17 11:00 74 05/22/17 10:00 78 05/22/17 09:00 72 I/O 05/22/17 05/22/17 05/22/17 05/23/17 05/23/17 05/23/17 07:00 15:00 23:00 07:00 15:00 23:00 Intake Total 830 ml 1280 ml 870 ml Output Total 1000 ml 850 ml 900 ml Balance -170 ml 430 ml -30 ml Intake Oral 720 ml 1120 ml 720 ml IV Total 110 ml 160 ml 150 ml Output Urine Total 1000 ml 850 ml 900 ml # Bowel Movements 0 0 Result Diagram: 05/23/17 0710 05/23/17 0710 Imaging Last Impressions Chest X-Ray 05/22/17 0000 Signed Impressions: Service Date/Time: Monday, May 22, 2017 12:11 - CONCLUSION: No acute disease. Amilcar Aguilar MD Lower Extremity Ultrasound 05/21/17 0000 Signed Impressions: Service Date/Time: Sunday, May 21, 2017 11:34 - CONCLUSION: 1. Lower extremity mapping, as above. Ruben Brody MD Carotid Artery Ultrasound 05/21/17 0000 Signed Impressions: Service Date/Time: Sunday, May 21, 2017 11:53 - CONCLUSION: 1. No significant atherosclerotic disease or stenosis is present within either internal carotid artery. 2. There is antegrade flow in both vertebral arteries. Jayden Messina MD Objective Remarks GENERAL: This is a well-nourished, well-developed patient, in no apparent distress. CARDIOVASCULAR: Regular rate and rhythm without murmurs, gallops, or rubs. RESPIRATORY: Clear to auscultation. Breath sounds equal bilaterally. No wheezes , rales, or rhonchi. GASTROINTESTINAL: Abdomen soft, non-tender, nondistended. No hepato-splenomegaly , or palpable masses. No guarding. MUSCULOSKELETAL: Extremities without clubbing, cyanosis, or edema. No joint tenderness, effusion, or edema noted. No calf tenderness. Negative Homans sign bilaterally. NEUROLOGICAL: Awake and alert. Cranial nerves II through XII intact. Motor and sensory grossly within normal limits. Five out of 5 muscle strength in all muscle groups. Normal speech. A/P Problem List: (1) NSTEMI (non-ST elevated myocardial infarction) ICD Code: I21.4 - Non-ST elevation (NSTEMI) myocardial infarction Assessment and Plan NSTEMI Left Ventricular Apical thrombus EKG: sinus rhythm with T inversion in [place]-lateral leads. Continue with heparin drip- will add aspirin and low-dose BB- Continue on nitro and morphine for chest pain. Cardiology consulted and plan for cardiac cath 05/21/17 With multiple vessel disease patient is CABG. Cardiothoracic surgeon was consulted. Per CTS high risk for CABG at this time as patient with LV apical thrombus. Cardiology ff, plan for high risk PCI on Wednesday. ECHO reviewed and discussed with the patient, EF 40-45 %, LV apical clot with potential for distal embolization and possible stroke during CABG surgery per Dr Perrin CTS. Ideally, he would need 4-6 weeks of anticoagulation therapy to allow the clot to organize or dissolve prior to proceeding with CABG, however, given his coronary anatomy, presenting NSTEMI and ongoing symptoms. Per Dr Perrin option of proceeding with CABG or performing PCI to LAD & RCA. Patient wishes to proceed with PCI to avoid the risk of operative stroke/embolization during surgery. Dr. New cardiology following also plan for PCI poss Wednesday On heparin drip Lipid panel reviewed, start statin Uncontrolled diabetes mellitus with A1C of 9.4. Insulin sliding scale, Accu- Cheks. welder assistant, dietary consult. Discussed with the patient length plan. We might consider starting long acting insulin Levemir however patient with ongoing tests/procedures, on ISS for now , monitor BS -DVT prophylaxis: on heparin drip. Discussed Condition With patient, nurse Valencia Byrnes MD May 23, 2017 08:41
[2017-05-23] MEDS: SODIUM CHLORIDE 0.9% FLUSH 10 ML FLUSH IV FLUSH SCH ×2 (09:00→20:02)
--- NOTE | 2017-05-23 10:11 | PD.CARD.PN ---
Subjective Subjective Remarks denies chest pain ,sob or palpitation (Rosamaria Bell) Objective Medications Current Medications Medications (Trade) Dose Ordered Sig/Falguni Route Start Time Stop Time Status Last Admin (Tylenol) 650 mg Q4H PRN PO 05/20/17 15:45 05/20/17 23:26 (Morphine Inj) 2 mg Q4H PRN IV PUSH 05/20/17 15:45 05/23/17 03:31 (Zofran Inj) 4 mg Q8H PRN IV PUSH 05/20/17 15:45 (Ecotrin Ec) 81 mg DAILY PO 05/20/17 18:15 05/22/17 08:31 (Lipitor) 40 mg DAILY PO 05/21/17 09:00 05/22/17 08:31 (Lopressor) 12.5 mg Q12HR PO 05/20/17 21:00 05/22/17 19:45 (Pill Splitter) 1 ea UNSCH PRN OTHER 05/20/17 18:30 (NS Flush) 2 ml BID IV FLUSH 05/21/17 21:00 05/22/17 19:45 (NS Flush) 2 ml UNSCH PRN IV FLUSH 05/21/17 11:00 Papaverine HCl 60 mg/Nitroglycerin 100 mcg/Diltiazem HCl 100 mg/Sodium Chloride 100 ml @ 0 mls/hr BULLDOZER MECHANIC IRRIGATION 05/21/17 11:00 05/28/17 10:59 Cefazolin Sodium 500 mg/Sodium Chloride 505 ml @ 0 mls/hr BULLDOZER MECH[employer]IC IRRIGATION 05/21/17 11:00 05/28/17 10:59 Cefazolin Sodium 2000 mg/Sodium Chloride 100 ml @ 200 mls/hr BULLDOZER MECHANIC IV 05/21/17 11:00 05/28/17 10:59 (Lopressor) 12.5 mg BULLDOZER MECHANIC PO 05/21/17 11:00 05/28/17 10:59 (Bactroban Nasal 2% Oint) 1 applic BID EACH NARE 05/21/17 21:00 05/26/17 20:59 05/22/17 19:45 (Hibiclens 4% Top Soln) 1 applic BULLDOZER MECH[employer]IC TOPICAL 05/21/17 11:00 05/28/17 10:59 Insulin Human Regular 100 units/ Sodium Chloride 100 ml @ 3 mls/hr TITRATE PRN IV 05/21/17 11:00 05/28/17 10:59 (D50w (Vial) Inj) 50 ml UNSCH PRN IV PUSH 05/21/17 11:00 ([place] 5-325 Mg) 1 tab Q6H PRN PO 05/21/17 11:30 05/21/17 17:11 Heparin Sodium/ Dextrose 250 ml @ 10 mls/hr TITRATE PRN IV 05/21/17 15:30 05/23/17 01:51 (D50w (Vial) Inj) 50 ml UNSCH PRN IV PUSH 05/22/17 10:30 (Glucagon Inj) 1 mg UNSCH PRN OTHER 05/22/17 10:30 Vital Signs / I&O Vital Signs Date Time Temp Pulse Resp B/P (MAP) Pulse Ox O2 Delivery O2 Flow Rate FiO2 05/23/17 08:09 97 Room Air 05/23/17 07:00 98.5 91 16 157/82 (107) 97 05/23/17 06:00 78 05/23/17 05:00 76 05/23/17 04:00 70 05/23/17 04:00 98.4 70 18 140/82 (101) 96 05/23/17 04:00 Room Air 05/23/17 03:00 72 05/23/17 02:00 74 05/23/17 01:00 75 05/23/17 00:00 98.0 77 20 146/83 (104) 97 05/23/17 00:00 77 05/23/17 00:00 Room Air 05/22/17 23:00 79 05/22/17 22:00 74 05/22/17 21:00 85 05/22/17 20:00 83 05/22/17 20:00 Room Air 05/22/17 20:00 98.2 83 20 162/96 (118) 97 05/22/17 18:00 80 05/22/17 17:00 78 05/22/17 16:00 80 05/22/17 15:33 98.8 80 20 139/78 (98) 98 05/22/17 15:00 86 05/22/17 14:00 82 05/22/17 13:00 80 05/22/17 12:00 84 05/22/17 12:00 98.2 84 20 149/86 (107) 98 05/22/17 11:00 74 I/O 05/22/17 05/22/17 05/22/17 05/23/17 05/23/17 05/23/17 07:00 15:00 23:00 07:00 15:00 23:00 Intake Total 830 ml 1280 ml 870 ml Output Total 1000 ml 850 ml 900 ml Balance -170 ml 430 ml -30 ml Intake Oral 720 ml 1120 ml 720 ml IV Total 110 ml 160 ml 150 ml Output Urine Total 1000 ml 850 ml 900 ml # Bowel Movements 0 0 Physical Exam GENERAL: SKIN: Warm and dry. HEAD: Atraumatic. Normocephalic. EYES: Pupils equal and round. ENT: No nasal bleeding or discharge. NECK: Trachea midline. No JVD. CARDIOVASCULAR: Regular rate and rhythm. no murmurs RESPIRATORY: No accessory muscle use. Clear to auscultation. Breath sounds equal bilaterally. GASTROINTESTINAL: Abdomen soft, non-tender, nondistended. MUSCULOSKELETAL: Extremities without clubbing, cyanosis, or edema. No obvious deformities. NEUROLOGICAL: Awake and alert. No obvious cranial nerve deficits. Normal speech. PSYCHIATRIC: Appropriate mood and affect; insight and judgment normal. Laboratory Laboratory Tests Test 05/22/17 10:37 05/22/17 18:57 05/23/17 01:14 05/23/17 07:10 Activated Partial Thromboplast Time 33.2 SEC 34.9 SEC 35.4 SEC 36.5 SEC White Blood Count 8.9 TH/MM3 Red Blood Count 5.50 MIL/MM3 Hemoglobin 15.6 GM/DL Hematocrit 45.5 % Mean Corpuscular Volume 82.8 FL Mean Corpuscular Hemoglobin 28.4 PG Mean Corpuscular Hemoglobin Concent 34.3 % Red Cell Distribution Width 13.6 % Platelet Count 273 TH/MM3 Mean Platelet Volume 9.6 FL Blood Urea Nitrogen 11 MG/DL Creatinine 0.79 MG/DL Random Glucose 148 MG/DL Total Protein 8.8 GM/DL Albumin 3.3 GM/DL Calcium Level 8.6 MG/DL Alkaline Phosphatase 118 U/L Aspartate Amino Transf (AST/SGOT) 29 U/L Alanine Aminotransferase (ALT/SGPT) 27 U/L Total Bilirubin 0.7 MG/DL Sodium Level 136 MEQ/L Potassium Level 3.9 MEQ/L Chloride Level 102 MEQ/L Carbon Dioxide Level 27.2 MEQ/L Anion Gap 7 MEQ/L Estimat Glomerular Filtration Rate 103 ML/MIN Imaging Last 48 hours Impressions Chest X-Ray 05/22/17 0000 Signed Impressions: Service Date/Time: Monday, May 22, 2017 12:11 - CONCLUSION: No acute disease. Amilcar Aguilar MD (Rosamaria Bell) Assessment and Plan Problem List: (1) NSTEMI (non-ST elevated myocardial infarction) ICD Codes: I21.4 - Non-ST elevation (NSTEMI) myocardial infarction Assessment and Plan 51 yo M with no prior cardiac history who presented on 05/20/17 with chest pain and NSTEMI. cardiac catheterization showed severe 3 vessel disease, CVS consulted for CABG CAD- considering CABG and followed by CVS team echo shows EF 40-45% with possible LV thrombus. consider [facility] (Rosamaria Bell) Assessment and Plan LV apical thrombus high risk for CVA with CABG discussed options of PCI and risks patient agreeable (Bladimir New MD) Rosamaria Bell May 23, 2017 10:11 Bladimir New MD May 24, 2017 09:45
[2017-05-23] MEDS: ATORVASTATIN 40 MG TAB PO SCH (10:21)
[2017-05-23] MEDS: METOPROLOL TARTRATE 25 MG TAB PO SCH ×2 (10:21→20:02)
[2017-05-23] MEDS: ASPIRIN EC 81 MG TABEC PO SCH (10:22)
[2017-05-23] MEDS: MUPIROCIN 2% OINT 1 APPLIC/GM SYR EACH NARE SCH ×2 (10:22→20:02)
--- NOTE | 2017-05-23 10:50 | PD.CAR.PN ---
CVT Progress Note Subjective/Hospital Course: Discussed ECHO findings of LV apical clot with potential for distal embolization and possible stroke during CABG surgery with the patient and with Dr. New. Ideally, he would need 4-6 weeks of anticoagulation therapy to allow the clot to organize or dissolve prior to proceeding with CABG, however, given his coronary anatomy, presenting NSTEMI and ongoing symptoms, I don't think he will be able to tolerate that. Discussed the option of proceeding with CABG or performing PCI to LAD & RCA with the pt. He wishes to proceed with PCI to avoid the risk of operative stroke/embolization during surgery. Will defer to Dr. New for further therapy. Objective: Vital Signs Date Time Temp Pulse Resp B/P (MAP) Pulse Ox O2 Delivery O2 Flow Rate FiO2 05/23/17 08:09 97 Room Air 05/23/17 07:00 98.5 91 16 157/82 (107) 97 05/23/17 06:00 78 05/23/17 05:00 76 05/23/17 04:00 70 05/23/17 04:00 98.4 70 18 140/82 (101) 96 05/23/17 04:00 Room Air 05/23/17 03:00 72 05/23/17 02:00 74 05/23/17 01:00 75 05/23/17 00:00 98.0 77 20 146/83 (104) 97 05/23/17 00:00 77 05/23/17 00:00 Room Air 05/22/17 23:00 79 05/22/17 22:00 74 05/22/17 21:00 85 05/22/17 20:00 83 05/22/17 20:00 Room Air 05/22/17 20:00 98.2 83 20 162/96 (118) 97 05/22/17 18:00 80 05/22/17 17:00 78 05/22/17 16:00 80 05/22/17 15:33 98.8 80 20 139/78 (98) 98 05/22/17 15:00 86 05/22/17 14:00 82 05/22/17 13:00 80 05/22/17 12:00 84 05/22/17 12:00 98.2 84 20 149/86 (107) 98 05/22/17 11:00 74 Labs: Laboratory Tests Test 05/23/17 01:14 05/23/17 07:10 Activated Partial Thromboplast Time 35.4 SEC (24.3-30.1) 36.5 SEC (24.3-30.1) White Blood Count 8.9 TH/MM3 (4.0-11.0) Red Blood Count 5.50 MIL/MM3 (4.50-5.90) Hemoglobin 15.6 GM/DL (13.0-17.0) Hematocrit 45.5 % (39.0-51.0) Mean Corpuscular Volume 82.8 FL (80.0-100.0) Mean Corpuscular Hemoglobin 28.4 PG (27.0-34.0) Mean Corpuscular Hemoglobin Concent 34.3 % (32.0-36.0) Red Cell Distribution Width 13.6 % (11.6-17.2) Platelet Count 273 TH/MM3 (150-450) Mean Platelet Volume 9.6 FL (7.0-11.0) Blood Urea Nitrogen 11 MG/DL (7-18) Creatinine 0.79 MG/DL (0.60-1.30) Random Glucose 148 MG/DL (74-106) Total Protein 8.8 GM/DL (6.4-8.2) Albumin 3.3 GM/DL (3.4-5.0) Calcium Level 8.6 MG/DL (8.5-10.1) Alkaline Phosphatase 118 U/L (45-117) Aspartate Amino Transf (AST/SGOT) 29 U/L (15-37) Alanine Aminotransferase (ALT/SGPT) 27 U/L (12-78) Total Bilirubin 0.7 MG/DL (0.2-1.0) Sodium Level 136 MEQ/L (136-145) Potassium Level 3.9 MEQ/L (3.5-5.1) Chloride Level 102 MEQ/L (98-107) Carbon Dioxide Level 27.2 MEQ/L (21.0-32.0) Anion Gap 7 MEQ/L (5-15) Estimat Glomerular Filtration Rate 103 ML/MIN (>89) Result Diagram: 05/23/17 0710 05/23/17 0710 (1) NSTEMI (non-ST elevated myocardial infarction) Marcelo Perrin MD May 23, 2017 10:50
[2017-05-23] MEDS ORDERED: CLOPIDOGREL 300 MG TAB PO ONE (12:30)
[2017-05-23] MEDS: INSULIN ASPART SUPPLEMENTAL SCALE SQ SCH ×3 (14:35→20:13)
[2017-05-24] VITALS (24 sets, daily range): BP systolic 123–154; BP diastolic 74–95; PULSE 62–90; RESP 14–18; TEMP 98–98.9; O2SAT 93–97
[2017-05-24] MEDS: MORPHINE SULFATE 2 MG/ML INJ IV PUSH PRN (00:16)
[2017-05-24 03:03] LABS: HEMATOCRIT 45.8 % (39.0-51.0); HEMOGLOBIN 15.4 GM/DL (13.0-17.0); MEAN CELL VOLUME 82.5 FL (80.0-100.0); MEAN CORPUSCULAR HEMOGLOBIN 27.7 PG (27.0-34.0); MEAN CORPUSCULAR HGB CONC 33.6 % (32.0-36.0); MEAN PLATELET VOLUME 9.2 FL (7.0-11.0); PLATELET COUNT 278 TH/MM3 (150-450); RED BLOOD COUNT 5.56 MIL/MM3 (4.50-5.90); RED CELL DISTRIBUTION WIDTH 13.6 % (11.6-17.2); WHITE BLOOD COUNT 9.4 TH/MM3 (4.0-11.0)
[2017-05-24] MEDS ORDERED: fentaNYL CITRATE 1000 MCG/20 ML VIAL ONE (07:00)
[2017-05-24] MEDS ORDERED: MIDAZOLAM HCL 5 MG/ML VIAL (1 ML) ONE (07:01)
[2017-05-24] MEDS: INSULIN ASPART SUPPLEMENTAL SCALE SQ SCH ×4 (08:00→21:08)
--- NOTE | 2017-05-24 08:34 | PD.CARD.PN ---
Subjective Subjective Remarks denies chest pain ,sob or palpitation Objective Medications Current Medications Medications (Trade) Dose Ordered Sig/Falguni Route Start Time Stop Time Status Last Admin (Tylenol) 650 mg Q4H PRN PO 05/20/17 15:45 05/20/17 23:26 (Morphine Inj) 2 mg Q4H PRN IV PUSH 05/20/17 15:45 05/24/17 00:16 (Zofran Inj) 4 mg Q8H PRN IV PUSH 05/20/17 15:45 (Ecotrin Ec) 81 mg DAILY PO 05/20/17 18:15 05/23/17 10:22 (Lipitor) 40 mg DAILY PO 05/21/17 09:00 05/23/17 10:21 (Lopressor) 12.5 mg Q12HR PO 05/20/17 21:00 05/23/17 20:02 (Pill Splitter) 1 ea UNSCH PRN OTHER 05/20/17 18:30 (NS Flush) 2 ml BID IV FLUSH 05/21/17 21:00 05/23/17 20:02 (NS Flush) 2 ml UNSCH PRN IV FLUSH 05/21/17 11:00 Papaverine HCl 60 mg/Nitroglycerin 100 mcg/Diltiazem HCl 100 mg/Sodium Chloride 100 ml @ 0 mls/hr RAMP JOCKEY IRRIGATION 05/21/17 11:00 05/28/17 10:59 Cefazolin Sodium 500 mg/Sodium Chloride 505 ml @ 0 mls/hr RAMP JOCKEY IRRIGATION 05/21/17 11:00 05/28/17 10:59 Cefazolin Sodium 2000 mg/Sodium Chloride 100 ml @ 200 mls/hr RAMP JOCKEY IV 05/21/17 11:00 05/28/17 10:59 (Lopressor) 12.5 mg RAMP JOCKEY PO 05/21/17 11:00 05/28/17 10:59 (Bactroban Nasal 2% Oint) 1 applic BID EACH NARE 05/21/17 21:00 05/26/17 20:59 05/23/17 20:02 (Hibiclens 4% Top Soln) 1 applic RAMP JOCKEY TOPICAL 05/21/17 11:00 05/28/17 10:59 Insulin Human Regular 100 units/ Sodium Chloride 100 ml @ 3 mls/hr TITRATE PRN IV 05/21/17 11:00 05/28/17 10:59 (D50w (Vial) Inj) 50 ml UNSCH PRN IV PUSH 05/21/17 11:00 ([place] 5-325 Mg) 1 tab Q6H PRN PO 05/21/17 11:30 05/21/17 17:11 Heparin Sodium/ Dextrose 250 ml @ 10 mls/hr TITRATE PRN IV 05/21/17 15:30 05/23/17 01:51 (D50w (Vial) Inj) 50 ml UNSCH PRN IV PUSH 05/22/17 10:30 (Glucagon Inj) 1 mg UNSCH PRN OTHER 05/22/17 10:30 (NovoLOG SUPPLEMENTAL SCALE) 1 ACHS SLIDING SCALE SQ 05/23/17 12:00 05/23/17 17:00 (Plavix) 75 mg DAILY PO 05/24/17 09:00 Vital Signs / I&O Vital Signs Date Time Temp Pulse Resp B/P (MAP) Pulse Ox O2 Delivery O2 Flow Rate FiO2 05/24/17 06:00 72 05/24/17 05:00 69 05/24/17 04:00 Nasal Cannula 2.00 05/24/17 04:00 98.0 64 18 131/76 (94) 96 05/24/17 04:00 64 05/24/17 03:00 69 05/24/17 02:00 65 05/24/17 01:00 65 05/24/17 00:00 62 05/24/17 00:00 Nasal Cannula 2.00 05/24/17 00:00 98.1 62 18 144/84 (104) 97 05/23/17 23:00 74 05/23/17 22:00 81 05/23/17 21:00 90 05/23/17 20:43 Nasal Cannula 2.00 05/23/17 20:00 Nasal Cannula 2.00 05/23/17 20:00 98.2 96 20 150/95 (113) 97 05/23/17 20:00 96 05/23/17 18:00 84 05/23/17 17:00 86 05/23/17 16:00 84 05/23/17 15:00 84 05/23/17 15:00 78 16 154/86 (108) 95 05/23/17 14:00 68 05/23/17 13:00 82 05/23/17 12:00 78 05/23/17 11:00 80 05/23/17 11:00 98.1 80 17 144/93 (110) 98 05/23/17 10:00 96 05/23/17 09:00 64 I/O 05/23/17 05/23/17 05/23/17 05/24/17 05/24/17 05/24/17 07:00 15:00 23:00 07:00 15:00 23:00 Intake Total 870 ml 1000 ml 720 ml Output Total 900 ml 1500 ml 1000 ml Balance -30 ml -500 ml -280 ml Intake Oral 720 ml 1000 ml 720 ml IV Total 150 ml Output Urine Total 900 ml 1500 ml 1000 ml # Bowel Movements 0 0 Physical Exam GENERAL: SKIN: Warm and dry. HEAD: Atraumatic. Normocephalic. EYES: Pupils equal and round. ENT: No nasal bleeding or discharge. NECK: Trachea midline. No JVD. CARDIOVASCULAR: Regular rate and rhythm. no murmurs RESPIRATORY: No accessory muscle use. Clear to auscultation. Breath sounds equal bilaterally. GASTROINTESTINAL: Abdomen soft, non-tender, nondistended. MUSCULOSKELETAL: Extremities without clubbing, cyanosis, or edema. No obvious deformities. NEUROLOGICAL: Awake and alert. No obvious cranial nerve deficits. Normal speech. PSYCHIATRIC: Appropriate mood and affect; insight and judgment normal. Laboratory Laboratory Tests Test 05/23/17 19:53 05/24/17 02:40 Activated Partial Thromboplast Time 41.1 SEC 42.4 SEC White Blood Count 9.4 TH/MM3 Red Blood Count 5.56 MIL/MM3 Hemoglobin 15.4 GM/DL Hematocrit 45.8 % Mean Corpuscular Volume 82.5 FL Mean Corpuscular Hemoglobin 27.7 PG Mean Corpuscular Hemoglobin Concent 33.6 % Red Cell Distribution Width 13.6 % Platelet Count 278 TH/MM3 Mean Platelet Volume 9.2 FL Assessment and Plan Problem List: (1) NSTEMI (non-ST elevated myocardial infarction) ICD Codes: I21.4 - Non-ST elevation (NSTEMI) myocardial infarction Assessment and Plan 51 yo M with no prior cardiac history who presented on 05/20/17 with chest pain and NSTEMI. cardiac catheterization showed severe 3 vessel disease. CTS consulted for possible CABG. echo shows EF 40-45% with possible LV thrombus. patient would require 4-6 weeks of anticoagulation to reduce intraoperative risk of stroke. CTS does not recommend waiting that long and patient is agreeable to PCI today. Rosamaria Bell May 24, 2017 08:34
[2017-05-24] MEDS: ASPIRIN EC 81 MG TABEC PO SCH (09:20)
[2017-05-24] MEDS: METOPROLOL TARTRATE 25 MG TAB PO SCH ×2 (09:21→21:07)
[2017-05-24] MEDS: ATORVASTATIN 40 MG TAB PO SCH (09:21)
[2017-05-24] MEDS: CLOPIDOGREL 75 MG TAB PO SCH (09:22)
[2017-05-24] MEDS: MUPIROCIN 2% OINT 1 APPLIC/GM SYR EACH NARE SCH ×2 (09:22→21:00)
[2017-05-24] MEDS: SODIUM CHLORIDE 0.9% FLUSH 10 ML FLUSH IV FLUSH SCH ×2 (09:22→21:00)
[2017-05-24] MEDS ORDERED: HEPARIN-NS/PF FLUSH BAG 2,000 ML IV FLUSH ONE (10:13)
[2017-05-24] MEDS ORDERED: MIDAZOLAM HCL 2 MG/2 ML VIAL ONE (10:49)
[2017-05-24] MEDS ORDERED: HEPARIN SODIUM - IV 10,000 UNITS/10 ML VIAL ONE (10:58)
[2017-05-24] MEDS ORDERED: ADENOSINE IV SOLN 3 MG/ML 2 ML VIAL ONE (11:04)
--- NOTE | 2017-05-24 11:15 | HHI.PR ---
Subjective Remarks In bed says she had less chest apoin overnight however he hasd some right shoulder pain . No diaphoreiss, nausea, palpitations. lightheadedness. Plan for PCI today patient is also complaining of right foot pain says it hurts when he is walking. Had US and negative for DVt. Will check x rays Objective Vitals Vital Signs Date Time Temp Pulse Resp B/P (MAP) Pulse Ox O2 Delivery O2 Flow Rate FiO2 05/24/17 11:00 76 05/24/17 10:00 76 05/24/17 09:00 64 05/24/17 08:00 64 05/24/17 08:00 93 Room Air 05/24/17 08:00 98.2 75 16 144/88 (106) 93 05/24/17 07:00 70 05/24/17 06:00 72 05/24/17 05:00 69 05/24/17 04:00 Nasal Cannula 2.00 05/24/17 04:00 98.0 64 18 131/76 (94) 96 05/24/17 04:00 64 05/24/17 03:00 69 05/24/17 02:00 65 05/24/17 01:00 65 05/24/17 00:00 62 05/24/17 00:00 Nasal Cannula 2.00 05/24/17 00:00 98.1 62 18 144/84 (104) 97 05/23/17 23:00 74 05/23/17 22:00 81 05/23/17 21:00 90 05/23/17 20:43 Nasal Cannula 2.00 05/23/17 20:00 Nasal Cannula 2.00 05/23/17 20:00 98.2 96 20 150/95 (113) 97 05/23/17 20:00 96 05/23/17 18:00 84 05/23/17 17:00 86 05/23/17 16:00 84 05/23/17 15:00 84 05/23/17 15:00 78 16 154/86 (108) 95 05/23/17 14:00 68 05/23/17 13:00 82 05/23/17 12:00 78 I/O 05/23/17 05/23/17 05/23/17 05/24/17 05/24/17 05/24/17 07:00 15:00 23:00 07:00 15:00 23:00 Intake Total 870 ml 1000 ml 720 ml Output Total 900 ml 1500 ml 1000 ml Balance -30 ml -500 ml -280 ml Intake Oral 720 ml 1000 ml 720 ml IV Total 150 ml Output Urine Total 900 ml 1500 ml 1000 ml # Bowel Movements 0 0 Result Diagram: 05/24/17 0240 05/23/17 0710 Imaging Last Impressions Head CT 05/24/17 0000 Signed Impressions: Service Date/Time: Wednesday, May 24, 2017 17:11 - CONCLUSION: Small nonspecific focus of diminished attenuation in the left centrum semiovale. Jayden Jordan MD Chest X-Ray 05/22/17 0000 Signed Impressions: Service Date/Time: Monday, May 22, 2017 12:11 - CONCLUSION: No acute disease. Amilcar Aguilar MD Lower Extremity Ultrasound 05/21/17 0000 Signed Impressions: Service Date/Time: Sunday, May 21, 2017 11:34 - CONCLUSION: 1. Lower extremity mapping, as above. Ruben Brody MD Carotid Artery Ultrasound 05/21/17 0000 Signed Impressions: Service Date/Time: Sunday, May 21, 2017 11:53 - CONCLUSION: 1. No significant atherosclerotic disease or stenosis is present within either internal carotid artery. 2. There is antegrade flow in both vertebral arteries. Jayden Messina MD Objective Remarks GENERAL: This is a well-nourished, well-developed patient, in no apparent distress. CARDIOVASCULAR: Regular rate and rhythm without murmurs, gallops, or rubs. RESPIRATORY: Clear to auscultation. Breath sounds equal bilaterally. No wheezes , rales, or rhonchi. GASTROINTESTINAL: Abdomen soft, non-tender, nondistended. No hepato-splenomegaly , or palpable masses. No guarding. MUSCULOSKELETAL: Right foot pain tenderness on palpation. Extremities without clubbing, cyanosis, or edema. No joint tenderness, effusion, or edema noted. No calf tenderness. Negative Homans sign bilaterally. NEUROLOGICAL: Awake and alert. Cranial nerves II through XII intact. Motor and sensory grossly within normal limits. Five out of 5 muscle strength in all muscle groups. Normal speech. A/P Problem List: (1) NSTEMI (non-ST elevated myocardial infarction) ICD Code: I21.4 - Non-ST elevation (NSTEMI) myocardial infarction Assessment and Plan NSTEMI Left Ventricular Apical thrombus EKG: sinus rhythm with T inversion in [place]-lateral leads. Continue with heparin drip- will add aspirin and low-dose BB- Continue on nitro and morphine for chest pain. Cardiology consulted and plan for cardiac cath 05/21/17 With multiple vessel disease patient is CABG. Cardiothoracic surgeon was consulted. Per CTS high risk for CABG at this time as patient with LV apical thrombus. Cardiology ff, plan for high risk PCI on Wednesday. ECHO reviewed and discussed with the patient, EF 40-45 %, LV apical clot with potential for distal embolization and possible stroke during CABG surgery per Dr Perrin CTS. Ideally, he would need 4-6 weeks of anticoagulation therapy to allow the clot to organize or dissolve prior to proceeding with CABG, however, given his coronary anatomy, presenting NSTEMI and ongoing symptoms. Per Dr Perrin option of proceeding with CABG or performing PCI to LAD & RCA. Patient wishes to proceed with PCI to avoid the risk of operative stroke/embolization during surgery. Dr. New cardiology following also plan for PCI 05/24/17 On heparin drip Lipid panel reviewed, start statin Uncontrolled diabetes mellitus with A1C of 9.4. Insulin sliding scale, Accu- Cheks. parent educator, dietary consult. Discussed with the patient length plan. We might consider starting long acting insulin Levemir however patient with ongoing tests/procedures, on ISS for now , monitor BS Right foot pain says it hurts when he is walking. Had US and negative for DVT. Ordered x rays reviewed no fracture. -DVT prophylaxis: on heparin drip. Discussed Condition With patient, nurse Valencia Byrnes MD May 24, 2017 11:15
[2017-05-24] MEDS ORDERED: CLOPIDOGREL 75 MG TAB ONE (12:13)
[2017-05-24] MEDS ORDERED: MISC INFORMATION XX ONE (12:15)
[2017-05-24] MEDS ORDERED: LORazepam 2 MG/ML VIAL IV PUSH PRN (12:15)
[2017-05-24] MEDS ORDERED: LIDOCAINE HCL 1% 50 ML VIAL INFIL PRN (12:15)
[2017-05-24] MEDS ORDERED: ATROPINE SULFATE 1 MG/ML VIAL IV PUSH PRN (12:15)
--- NOTE | 2017-05-24 12:17 | CATHPROC ---
Prezi HIS Report Study Information Study Number Scheduled Start Study Start [id number] 05/24/2017 May 24 2017 10:21AM Referring Institution Admit Source Facility Department 1 Emergency department [facility] - Volleyball Assistant Coach Physician and Clinical Staff Initial Bladimir Roa Set Key Driver Jonathon Edwards,TRIPP Set Key Driver Jacinda Bautista ,RT(R) Recorder Laurie Mullen BSN Recorder Alfonso Delgado RCIS(BS) Scrub Tyra Nunn,RT(R) Procedures Performed Procedure Location (Site) Vessel Name Coronary Angiograms LCA Left Coronary Drug Eluting Inflatio LAD Mid Left Coronary Drug Eluting Inflatio RCA Mid Right Coronary L Heart Cath PTCA LAD Mid Left Coronary PTCA RCA Mid Right Coronary Stent LAD Mid Left Coronary Wire insertion Fem Art (right) Femoral Art Equipment Time Mexican Food Cook Description Size Mfg Part Number Used/Scraped COPILOT VALVE, BLEEDBACK [id number] 10:28 [employer] Used CONTROL *[id number] WIRE, BALANCE MIDDLEWEIGHT [id number] 11:47 [employer] 300CM Used 300CM *[id number] TRANSDUCER, TRUWAVE [id number] 10:28 CONTRERAS DEL CASTILLO * Used W/STOCKCOCK *[id number] CARDIOVASCULAR CATHETER, CORONARY CLASSIC [id number] 11:05 Used SYSTEMS INC. 1.25MM *[id number] CARDIOVASCULAR WIRE, VIPER ADVANCE [id number] 11:03 Used SYSTEMS INC. CORONARY FLP *[id number] [phone] *[id number] [phone] *[id number] [phone] *[id number] 10:28 MEDLINE [employer] PACK, CCL CUSTOM * Used *[id number] [id number] 10:28 [employer] PACER PEN, SKIN DUAL W/ RULER * Used *[id number] BALLOON, 1.25 X 6MM SPRINTER [id number] 11:00 MEDTRONIC 6MM Used LEGEND OTW *[id number] [id number] 11:59 MEDTRONIC BALLOON, 2.0 X 30MM EUPHORA 30MM Used *[id number] [id number] 11:18 MEDTRONIC BALLOON, 2.5 X 20MM EUPHORA 20MM Used *[id number] 12:03 MEDTRONIC STENT, 2.5 38MM MARIA D 2.5 38MM [id number] Used 12:05 MEDTRONIC STENT, 2.5 38MM MARIA D 2.5 38MM [id number] Used [id number] 11:25 MEDTRONIC STENT, 2.75 22MM MARIA D 2.75 22MM Used *[id number] 11:29 MEDTRONIC STENT, 3.0 34MM MARIA D 3.0 34MM [id number] Used [id number] 11:20 [employer] MEDICAL 30 CATHLEEN INDEFLATOR Used *[id number] [id number] 11:20 [employer] MEDICAL 30 CATHLEEN INDEFLATOR Used *[id number] [id number] 10:28 [employer] MEDICAL SHEATH, FR6.5 PRELUDE 11CM FR 6.5 038ACT Used *4125551 [id number] 10:28 [employer] WIRE, 3MMJ .035 180CM 180CM Used *[id number] 10:28 NAMIC MANIFOLD, 4 PORT * Used *5397616 10:28 NYCOMED OMNIPAQUE, 350 MG, 150ML 150ML [id number] Used [id number] 10:28 JONES [employer] BLANKET,WARM AIR CCL * Used *6664839 WIRE, RUNTHROUGH NS FLOPPY 25-1013 10:58 [employer] MEDICAL 300CM Used .014 300CM *9786484 11:41 VASCULAR SOLUTIONS CATHETER, FR6 GUIDELINER FR 6 0084 *[id number] Used Equipment Model, Serial, Lot Number and Expiration Data Description Model Number Serial Number Lot Number Expiration Date BALLOON, 1.25 X 6MM SPRINTER [id number] 12-22-2019 LEGEND OTW CATHETER, CORONARY CLASSIC 12-17-2018 1.25MM STENT, 2.5 38MM MARIA D [id number] 02-02-2019 STENT, 2.5 38MM MARIA D [id number] 01-04-2019 STENT, 2.75 22MM MARIA D [id number] 10-20-2018 STENT, 3.0 34MM MARIA D [id number] 02-25-2019 WIRE, KALIN ADVANCE CORONARY [id number] 05-19-2018 History: Current Medications Medication Dosage/Unit Route Frequency Last Date/Time Taken ASA LOPRESSOR PLAVIX Statins (any) History: Allergies Allergy Reaction No Known Allergies History: Risk Factors Family History of Hypertension Dyslipidemia Previous HI Previous Heart Failure Premature CAD No No Yes No No Prior Valve Prior PCI Prior CABG Surgery No No No Cerebrovascular Peripheral Artery Chronic Lung On Dialysis Diabetes Disease Disease Disease No No No No No History: Stress Tests Stress or Imaging Studies Performed No History: Other Current Smoker No Labs Hgb (g/dl) Hct (%) WBC (l/cumm) Platelets (thousands) 11.60-17.00 35.00-51.00 4.00-11.00 150.00-450.00 15.4 45.8 9.4 278 Glucose (mg/dl) BUN (mg/dl) Creatinine (mg/dl) BUN:Creatinine (1:x) 74.00-106.00 7.00-18.00 0.50-1.30 10.00-20.00 148 11 0.7 15.7 Na (meq/l) K (meq/l) 136.00-145.00 3.50-5.10 136 3.9 INR (PTT:PT) 0.90-1.10 1 Troponin I (ng/ml) Troponin T (ng/ml) 0.02-0.05 0.40-2.10 24.6 22.9 Medication Medication Total Dose (Bolus/Oral) Medication Total Dosage/Unit 1% XYLOCAINE 20 mL FENTANYL 50 mcg HEPARIN 9000 units NTG (IC) 300 mcg PLAVIX 75 mg VERSED 2 mg Medications (Bolus/Oral) Medication Time Given Dosage/Unit Administered By Reason VERSED 05/24/2017 10:53:29 AM 2 mg Jonathon Edwards 2 mg VERSED given in lab by Jonathon Edwards RN in Left Antecubital via Peripheral IV. FENTANYL 05/24/2017 10:54:04 AM 50 mcg Jonathon Edwards 50 mcg FENTANYL given in lab by Jonathon Edwards RN in Left Antecubital via Peripheral IV. 1% XYLOCAINE 05/24/2017 10:54:48 AM 20 mL Bladimir New 20 mL 1% XYLOCAINE given in lab by Bladimir New in Right Groin via Subcutaneous. HEPARIN 05/24/2017 10:58:32 AM 5000 units Jonathon Edwards 5000 units HEPARIN given in lab by Jonathon Edwards RN in Left Antecubital via Peripheral IV. NTG (IC) 05/24/2017 11:07:39 AM 200 mcg Bladimir eNw 200 mcg NTG (IC) given in lab by Bladimir New via Intra-coronary. HEPARIN 05/24/2017 11:20:37 AM 2000 units Jonathon Edwards 2000 units HEPARIN given in lab by Jonathon Edwards RN in Left Antecubital via Peripheral IV. NTG (IC) 05/24/2017 11:31:42 AM 100 mcg Bladimir New 100 mcg NTG (IC) given in lab by Bladimir New via Intra-coronary. HEPARIN 05/24/2017 11:37:03 AM 2000 units Jonathon Edwards 2000 units HEPARIN given in lab by Jonathon Edwards, TRIPP in Left Antecubital via Peripheral IV. PLAVIX 05/24/2017 12:15:54 PM 75 mg Jonathon Edwards 75 mg PLAVIX given in lab by Jonathon Edwards, TRIPP via Oral. Medication (Drip) Medication Time Given Dosage/Unit Concentration/Unit Diluent (ml) Soluti on IV Solutions 05/24/2017 10:30:53 AM 50 mL (IV) NaCl .9 IV Solutions given in lab by Jonathon Edwards, TRIPP in Left Antecubital via Peripheral IV. Pump/Drip at k vo Flow using NaCl .9. Initial Case Assessment Cardiovascular HR Rhythm NIBP 87 sr 143/93 Edema Present Skin color Skin None Normal Warm Dry Circulatory - Right Pulses Dorsalis Pedis Femoral 3 1 Scale (0,1,2,3,4,d) Circulatory - Left Pulses Dorsalis Pedis Femoral 3 1 Scale (0,1,2,3,4,d) Neurological State Oriented to time-place- Alert Moves all extremities person Respiration - General Respiration Rate SpO2 (%) O2 (lpm) (B/min) 13 96 0 Final Case Assessment Cardiovascular HR Rhythm NIBP Chest Pain 75 sr 149/86 0 Edema Present Skin color Skin None Normal Warm Dry Circulatory - Right Pulses Dorsalis Pedis Femoral 3 1 Scale (0,1,2,3,4,d) Circulatory - Left Pulses Dorsalis Pedis Femoral 3 1 Scale (0,1,2,3,4,d) Neurological State Oriented to time-place- Alert Moves all extremities person Respiration - General Respiration Rate SpO2 (%) O2 (lpm) (B/min) 18 98 0 Chronological Log Time Study Chronological Log 10:18:37 Patient arrived via Bed. 10:24:42 Patient Name, D.O.B, / Armband Verified By R.N. 10:25:45 Consent signed by the physician and the patient and verified by the Volleyball Assistant Coach staff. 10:25:50 Pre-op and post- op instructions given; patient acknowledges understanding of instructions. 10:29:50 Verbal Stimulation=2 Physical Stimulation=2 Airway=2 Respiration=2 TOTAL=8. (0=absent, 1=li mited, 2=present) 10:29:51 Presedation assessment performed by Volleyball Assistant Coach RN. 10:30:28 Immediate Presedation assesment performed by physician. 10:30:29 Patient has been NPO for More than 6Hrs. 10:30:29 Skin Breakdown- none per patient 10:30:51 Patient Warmer Placed on the Table. 10:30:52 Estefany Prominences Protected 10:30:53 A # 20 IV was noted in the Antecubital (left). 10:30:53 IV Solutions given in lab by Jonathon Edwards, TRIPP in Left Antecubital via Peripheral IV. Pump /Drip at kvo Flow using NaCl .9. 10:30:54 History and physical on the chart or being dictated. Assessment: Initial Case, HR=87 BPM, Rhythm=sr, AEDE=590/93 mmhg, Edema=None, Color=Normal, Ski n = Warm, Dry Right Pulses: Wilbert Ped=3, Femoral=1 10:35:20 Left Pulses: Wilbert Ped=3, Femoral=1 Neurological: State=Alert, Ox3, PORTILLO Respiration: Resp=13 B/min, SpO2=96 %, O2=0 lpm Vitals capture started with the following parameters, Patient=Adult, Interval=5 min, Initial Pr pasvde=054 mmHg, 10:35:54 Deflation Rate=5 mmHg, Cuff placed on Left Arm 10:35:59 Reference ECG taken 10:37:08 HR=77 bpm, CTTO=215/93 mmhg, SpO2=98.0 %, Resp=16 B/min, Pain=0, Vicky=10, Osorio=2 10:41:32 HR=77 bpm, UIUP=166/107 mmhg, SpO2=96.0 %, Resp=16 B/min, Pain=0, Vicky=10, Osorio=2 10:41:48 Bilateral groins prepped with 2% chlorhexidine, and draped after a 3 minute waiting time. 10:42:55 MD paged 10:43:34 MD responded 10:45:59 Pressure channel 1 zeroed. 10:46:37 HR=72 bpm, JMGG=210/85 mmhg, SpO2=96.0 %, Resp=13 B/min, Pain=0, Vicky=10, Osorio=2 10:49:36 MD arrived. 10:51:34 HR=74 bpm, QDZZ=349/87 mmhg, SpO2=96.0 %, Resp=11 B/min, Pain=0, Vicky=10, Osorio=2 10:53:29 2 mg VERSED given in lab by Jonathon Edwards, RN in Left Antecubital via Peripheral IV. 10:54:04 50 mcg FENTANYL given in lab by Jonathon Edwards, RN in Left Antecubital via Peripheral IV. Time Out. Correct patient, correct procedure, correct physician, power injector loaded, or not loaded with contrast with 10:54:09 surgical team present. Time Out Concurred by MD and individual staff in procedure. Time Out #2 - Consents verified, patient in correct position, all results are labled and displa yed, safety precautions 10:54:10 taken. Time Out concurred by MD, individual staff and ASSISTANT CLINICAL NURSE MANAGER in procedure. 10:54:12 Case Start 10:54:48 20 mL 1% XYLOCAINE given in lab by Bladimir New in Right Groin via Subcutaneous. 10:56:09 Access site was Right Femoral Artery. 10:56:19 A SHEATH, FR6.5 PRELUDE 11CM FR 6.5 was advanced into the Fem Art (right) using the Percuta neous technique. 10:56:31 HR=60 bpm, GBSI=229/84 mmhg, SpO2=91 %, Resp=11 B/min, Pain=0, Vicky=10, Osorio=2 10:57:02 A WIRE, 3MMJ .035 180CM 180CM was inserted via Fem Art (right). A XBLAD 3.5 GUIDE CATHETER FR 6 was advanced over a wire. OMNIPAQUE, 350 MG, 150ML 150ML was us ed for 10:57:07 injections. 10:58:32 5000 units HEPARIN given in lab by Jonathon Edwards, TRIPP in Left Antecubital via Peripheral IV . Recorded Pressure: Ao, HR=72, Condition=Condition 1 10:58:56 (Aorta) Ao 143/88/111 10:59:09 The LCA was injected and visualized at various angles. OMNIPAQUE, 350 MG, 150ML 150ML used . 10:59:58 A WIRE, RUNTHROUGH NS FLOPPY .014 300CM 300CM was inserted via Fem Art (right). 11:01:35 HR=67 bpm, VTCZ=971/74 mmhg, SpO2=95.0 %, Resp=10 B/min, Pain=0, Vicky=10, Osorio=2 A BALLOON, 1.25 X 6MM SPRINTER LEGEND OTW 6MM was inserted over WIRE, RUNTHROUGH NS FLOPPY .014 11:02:46 300CM 300CM via the Fem Art (right). 11:03:05 The previous wire was exchanged for a WIRE, VIPER ADVANCE CORONARY. 11:04:56 Balloon Removed. 11:05:38 An CATHETER, CORONARY CLASSIC 1.25MM catheter was inserted into the Fem Art (right). 11:06:34 HR=66 bpm, MXPV=706/79 mmhg, SpO2=97.0 %, Resp=16 B/min, Pain=0, Vicky=10, Osorio=2 11:07:17 Activated Clotting Time Drawn 11:07:39 200 mcg NTG (IC) given in lab by Bladimir New via Intra-coronary. 11:11:13 ACT (Normal Range 90-180) = 229 11:11:33 HR=68 bpm, PSDX=417/73 mmhg, SpO2=96.0 %, Resp=15 B/min, Pain=0, Vicky=10, Osorio=2 11:11:59 Athrectomy in progress. 11:12:51 athrectomy complete at low setting for 30 seconds 11:14:05 Athrectomy in progress. 11:14:40 athrectomy complete at low setting for 30 seconds A BALLOON, 1.25 X 6MM SPRINTER LEGEND OTW 6MM was inserted over WIRE, VIPER ADVANCE CORONARY vi a the 11:16:29 Fem Art (right). 11:16:39 The previous wire was exchanged for a WIRE, RUNTHROUGH NS FLOPPY .014 300CM 300CM. 11:17:25 HR=67 bpm, AXZR=113/79 mmhg, SpO2=95.0 %, Resp=17 B/min, Pain=0, Vicky=9, Osorio=2 11:18:35 Balloon Removed. A BALLOON, 2.5 X 20MM EUPHORA 20MM was inserted over WIRE, RUNTHROUGH NS FLOPPY .014 300CM 300C M via 11:18:46 the Fem Art (right). 11:20:37 2000 units HEPARIN given in lab by Jonathon Edwards RN in Left Antecubital via Peripheral IV . A BALLOON, 2.5 X 20MM EUPHORA 20MM over a WIRE, RUNTHROUGH NS FLOPPY .014 300CM 300CM in the LA D Mid 11:21:03 was inflated using a 30 CATHLEEN INDEFLATOR at 10 cathleen for 15 sec. A BALLOON, 1.25 X 6MM SPRINTER LEGEND OTW 6MM over a WIRE, RUNTHROUGH NS FLOPPY .014 300CM 300C M in 11:21:30 the LAD Mid was inflated using a 30 CATHLEEN INDEFLATOR at 10 cathleen for 15 sec. 11:21:35 HR=70 bpm, DOHG=111/74 mmhg, SpO2=95 %, Resp=16 B/min, Pain=0, Vicky=10, Osorio=2 A BALLOON, 2.5 X 20MM EUPHORA 20MM over a WIRE, RUNTHROUGH NS FLOPPY .014 300CM 300CM in the LA D Mid 11:22:01 was inflated using a 30 CATHLEEN INDEFLATOR at 12 cathleen for 6 sec. 11:22:30 Balloon Removed. A STENT, 2.75 22MM MARIA D 2.75 22MM was advanced through a XBLAD 3.5 GUIDE CATHETER FR 6 over a W JOSE ALBERTO, 11:25:28 RUNTHROUGH NS FLOPPY .014 300CM 300CM. A STENT, 2.75 22MM MARIA D 2.75 22MM was deployed using a 30 CATHLEEN INDEFLATOR at 12 atmospheres for 12 seconds 11:26:03 in the LAD Mid. 11:26:36 HR=72 bpm, PWAF=928/74 mmhg, SpO2=96.0 %, Resp=29 B/min, Pain=0, Vicky=10, Osorio=2 11:27:02 Delivery device removed A STENT, 3.0 34MM MARIA D 3.0 34MM was advanced through a XBLAD 3.5 GUIDE CATHETER FR 6 over a WIR E, 11:29:44 RUNTHROUGH NS FLOPPY .014 300CM 300CM. A STENT, 3.0 34MM MARIA D 3.0 34MM was deployed using a 30 CATHLEEN INDEFLATOR at 16 atmospheres for 12 seconds in 11:30:55 the LAD Mid. 11:31:35 HR=67 bpm, JURS=291/75 mmhg, SpO2=97.0 %, Resp=18 B/min, Pain=0, Vicky=10, Osorio=2 11:31:42 100 mcg NTG (IC) given in lab by Bladimir New via Intra-coronary. 11:32:00 Delivery device removed 11:32:05 Activated Clotting Time Drawn 11:33:25 Wire removed After removing the current catheter a XBRCA .070 GUIDE CATHETER FR 6 was advanced over a WIRE, 3MMJ .035 11:34:42 180CM 180CM. 11:36:25 ACT (Normal Range 90-180) = 229 11:36:36 HR=73 bpm, JIPR=535/67 mmhg, SpO2=97.0 %, Resp=20 B/min, Pain=0, Vicky=10, Osorio=2 11:37:03 2000 units HEPARIN given in lab by Jonathon Edwards, RN in Left Antecubital via Peripheral IV . 11:37:44 A WIRE, RUNTHROUGH NS FLOPPY .014 300CM 300CM was inserted via Fem Art (right). 11:40:13 Interventional wire has crossed the lesion 11:41:35 HR=74 bpm, UYUW=373/68 mmhg, SpO2=94.0 %, Resp=18 B/min, Pain=0, Vicky=10, Osorio=2 A CATHETER, FR6 GUIDELINER FR 6 was advanced over a wire. OMNIPAQUE, 350 MG, 150ML 150ML was us ed for 11:41:48 injections. 11:44:51 Guideliner catheter was removed A BALLOON, 1.25 X 6MM SPRINTER LEGEND OTW 6MM was inserted over WIRE, RUNTHROUGH NS FLOPPY .014 11:45:21 300CM 300CM via the Fem Art (right). 11:46:32 HR=72 bpm, HKBT=711/73 mmhg, SpO2=97.0 %, Resp=17 B/min, Pain=0, Vicky=10, Osorio=2 11:47:36 Balloon Removed. 11:47:41 Wire removed 11:47:43 A WIRE, BALANCE MIDDLEWEIGHT 300CM 300CM was inserted via Fem Art (right). 11:49:14 Wire removed After removing the current catheter a AL 1 GUIDE CATHETER FR 6 was advanced over a WIRE, 3MMJ . 035 180CM 11:49:51 180CM. 11:51:33 HR=60 bpm, UNWH=843/70 mmhg, SpO2=96.0 %, Resp=17 B/min, Pain=0, Vicky=10, Osorio=2 11:53:12 A WIRE, RUNTHROUGH NS FLOPPY .014 300CM 300CM was inserted via Fem Art (right). 11:53:56 Interventional wire has crossed the lesion A BALLOON, 1.25 X 6MM SPRINTER LEGEND OTW 6MM was inserted over WIRE, BALANCE MIDDLEWEIGHT 300C M 11:54:09 300CM via the Fem Art (right). 11:56:02 The previous wire was exchanged for a WIRE, BALANCE MIDDLEWEIGHT 300CM 300CM. 11:56:34 HR=74 bpm, UEZT=432/78 mmhg, SpO2=97.0 %, Resp=17 B/min, Pain=0, Vicky=10, Osorio=2 11:57:13 The previous wire was exchanged for a WIRE, RUNTHROUGH NS FLOPPY .014 300CM 300CM. The previous balloon catheter was replaced by a BALLOON, 2.0 X 30MM EUPHORA 30MM over a WIRE, R UNTHROUGH 11:58:29 NS FLOPPY .014 300CM 300CM. A BALLOON, 2.0 X 30MM EUPHORA 30MM over a WIRE, RUNTHROUGH NS FLOPPY .014 300CM 300CM in the RC A Mid 11:59:53 was inflated using a 30 CATHLEEN INDEFLATOR at 10 cathleen for 25 sec. A BALLOON, 2.0 X 30MM EUPHORA 30MM over a WIRE, RUNTHROUGH NS FLOPPY .014 300CM 300CM in the RC A Mid 12:00:27 was inflated using a 30 CATHLEEN INDEFLATOR at 12 cathleen for 8 sec. A BALLOON, 2.0 X 30MM EUPHORA 30MM over a WIRE, RUNTHROUGH NS FLOPPY .014 300CM 300CM in the RC A Mid 12:00:50 was inflated using a 30 CATHLEEN INDEFLATOR at 12 cathleen for 10 sec. 12:01:02 Balloon Removed. 12:01:37 HR=69 bpm, KVLS=255/76 mmhg, SpO2=97.0 %, Resp=11 B/min, Pain=0, Vicky=10, Osorio=2 A STENT, 2.5 38MM MARIA D 2.5 38MM was advanced through a AL 1 GUIDE CATHETER FR 6 over a WIRE, 12:02:27 RUNTHROUGH NS FLOPPY .014 300CM 300CM. A STENT, 2.5 38MM MARIA D 2.5 38MM was deployed using a 30 CATHLEEN INDEFLATOR at 16 atmospheres for 8 seconds in 12:03:21 the RCA Mid. 12:03:59 Delivery device removed A STENT, 2.5 38MM MARIA D 2.5 38MM was advanced through a AL 1 GUIDE CATHETER FR 6 over a WIRE, 12:05:04 RUNTHROUGH NS FLOPPY .014 300CM 300CM. A STENT, 2.5 38MM MARIA D 2.5 38MM was deployed using a 30 CATHLEEN INDEFLATOR at 12 atmospheres for 10 seconds in 12:06:05 the RCA Mid. 12:07:14 Delivery device removed 12:07:29 HR=70 bpm, HUOE=304/86 mmhg, SpO2=97.0 %, Resp=19 B/min, Pain=0, Vicky=10, Osorio=2 12:07:35 Wire removed 12:07:39 Catheter was removed 12:08:06 Case End 12:08:46 In the Fem Art (right) the SHEATH, FR6.5 PRELUDE 11CM FR 6.[address] by Bladimir New. 12::57 Sterile dressing applied to site 12::57 No case complications noted. 12:08:58 Cine recording checked. 12:08:59 Implantable Device card placed in patient's chart. 12:09:01 Bedside Report will be given. 12:09:02 Contrast Scanned 12:09:04 Verbal Stimulation=2 Physical Stimulation=2 Airway=2 Respiration=2 TOTAL=8. (0=absent, 1=li mited, 2=present) 12:09:17 A Left Heart Cath was performed. Assessment: Final Case, HR=75 BPM, Rhythm=sr, OOVS=132/86 mmhg, Chest Pain=0, Edema=None, [place] r=Normal, Skin = Warm, Dry Right Pulses: Wilbert Ped=3, Femoral=1 12:10:40 Left Pulses: Wilbert Ped=3, Femoral=1 Neurological: State=Alert, Ox3, PORTILLO Respiration: Resp=18 B/min, SpO2=98 %, O2=0 lpm 12:11:41 HR=72 bpm, IPSD=498/82 mmhg, SpO2=97.0 %, Resp=19 B/min, Pain=0, Vicky=10, Osorio=2 12:15:54 75 mg PLAVIX given in lab by Jonathon Edwards, TRIPP via Oral. 12:16:24 Patient moved to [facility] End Study - Contrast Media Used In Study Contrast Total Opened (mL) Total Used (mL) Total Wasted (mL) Omnipaque 150 150 0 End Study - Maximum Contrast Load Max Contrast Load (mL) 750.0 End Study - Radiation Exposure Fluoro Time (minutes) 20.2 End Study - Patient Disposition Complications Transferred To Interventional Outcome No Telemetry Bed successful
--- NOTE | 2017-05-24 12:47 | MA ---
cc: JAUN BENITEZ DATE 05/24/2017 PROCEDURE PERFORMED 1. Fluoroscopy with interpretation. 2. Coronary angiography. 3. Percutaneous intervention with drug-eluting stents to the left anterior descending and right coronary arteries. METHOD The risks, benefits and alternatives were discussed with the patient. The patient understood and consented to the procedure. PROCEDURE The patient was brought into the Catheterization Lab and placed on the catheterization table. The right groin was prepped and draped in the usual sterile fashion. The right groin was anesthetized with 2% lidocaine. The right common femoral artery was cannulated and a 6-Urdu, 11-cm sheath was placed without difficulty. CORONARY ANGIOGRAPHY Please see detailed diagnostic coronary angiogram recently performed on May 21, 2017. 1. The left main coronary artery has mild luminal irregularities. 2. The left anterior descending coronary artery has 90% stenosis in the mid-segment. 3. The circumflex has an occluded first obtuse marginal branch. 4. The right coronary artery has a 99% stenosis in the mid-segment, diffusely diseased. PERCUTANEOUS INTERVENTION The left coronary circulation was selectively engaged with a 6-Urdu XB-LAD 3.5 guide catheter. A 0.014-inch, 300-cm Terumo Run-Through wire was navigated down to the distal left anterior descending coronary artery. A 1.25 x 6-mm over the wire balloon was advanced down. The wire was pulled. A Viper wire was navigated down to the distal left anterior descending coronary artery and exchange balloon catheter removed. A 2.5 x 20-mm balloon was then deployed on three sequential inflations through the proximal to mid-left anterior descending coronary artery. A 2.75 x 22-mm RX Resolute Sunman drug-eluting stent was advanced in the mid-left anterior descending coronary artery and deployed. A 3.0 x 34-mm RX Resolute Sunman drug-eluting stent was advanced down to the proximal extending in the mid-to-left anterior descending coronary artery and deployed. Repeat angiography showed no residual stenosis, SHAZIA-3 flow. Attention was then directed towards the right coronary artery. The right coronary artery was selectively engaged with a 6-Urdu AL-1 guide catheter. A 0.014-inch, 300-cm Terumo Run-Through wire was navigated down the distal right coronary artery. Exchange balloon was advanced down, a 300-cm BMW wire then advanced down and exchanged and the balloon removed. A 2.0 x 30-mm balloon was then deployed on two sequential inflations to the mid-right coronary artery. A 2.5 x 38-mm RX Resolute drug-eluting stent was advanced down to the mid- extending into early distal right coronary artery and deployed. A 2.5 x 38-mm RX Resolute Sunman drug-eluting stent was advanced down to the proximal right coronary artery extending into the mid with minimal stent overlap and deployed. Repeat angiography showed no residual stenosis, SHAZIA-3 flow. CONCLUSIONS 1. Severe two-vessel coronary artery disease, left anterior descending coronary and right coronary stenosis. 2. Successful percutaneous intervention with drug-eluting stents to the prox, mid-left anterior descending and prox-mid, distal right coronary arteries. PLAN 1. The patient will be initiated on Plavix in addition to oral anticoagulant. 2. Monitor for any post-procedural complication. 3. Anticipate discharge hopefully tomorrow. MD AUBREY Alcantara/LESLIE /12:15 PM /12:23 PM
[2017-05-24] MEDS ORDERED: IOHEXOL 350 MG/ML 100 ML BTL (for Cath Lab) OTHER ONE (13:24)
[2017-05-24] MEDS ORDERED: IOHEXOL 350 MG/ML 50 ML BTL (for Cath Lab) OTHER ONE (13:24)
[2017-05-24] MEDS ORDERED: ACETAMINOPHEN 325 MG TAB PO PRN (17:00)
--- NOTE | 2017-05-24 17:30 | RADRPT ---
EXAM DATE/TIME: 05/24/2017 17:11 [place] COMPARISON: No previous studies available for comparison. INDICATIONS : Post cardia cath, double vision. RADIATION DOSE: 50.44 CTDIvol (mGy) MEDICAL HISTORY : Diabetes mellitus type 1. SURGICAL HISTORY : cardiac cath ENCOUNTER: Initial ACUITY: 1 day PAIN SCALE: 0/10 LOCATION: cranial TECHNIQUE: Multiple contiguous axial images were obtained of the head. Using automated exposure control and adj ustment of the mA and/or kV according to patient size, radiation dose was kept as low as reasonably a chievable to obtain optimal diagnostic quality images. DICOM format image data is available electro nically for review and comparison. FINDINGS: There is a small focus of diminished density in the left frontal centrum semiovale which is of undete rmined age and may be white matter lacunar infarct or focus of demyelinization. The brain is elsewher e symmetric and unremarkable. No evidence of mass or hemorrhage. Nothing to otherwise specifically carlson ggest acute infarction. There is mild mucosal disease present in the occasional ethmoid sinuses and s ome fluid and secretions in the right frontal sinus. Mastoids and middle ear cavities are clear. CONCLUSION: Small nonspecific focus of diminished attenuation in the left centrum semiovale. Jayden Jrodan MD on May 24, 2017 at 17:25 Board Certified Radiologist. This report was verified electronically.
--- NOTE | 2017-05-24 23:01 | RADRPT ---
EXAM DATE/TIME: 05/24/2017 22:47 [place] COMPARISON: No previous studies available for comparison. INDICATIONS : Pain in right foot with no trauma. MEDICAL HISTORY : Diabetes mellitus type 1. SURGICAL HISTORY : cardiac cath ENCOUNTER: Initial ACUITY: 1 day PAIN SCORE: 8/10 LOCATION: Right foot FINDINGS: Three view examination of the right foot demonstrates no soft tissue swelling, dislocation, or fractu re. The tarsal bones appear intact. There are some mild degenerative changes of the DIP joints. The re are some degenerative changes of the mid tarsal bones.. The calcaneus is intact. Bony mineraliza tion is normal. There is a prominent heel spur. CONCLUSION: 1. No acute fracture or joint dislocation. 2. Degenerative changes are seen involving the foot. 3. Heel spur. Emmanuel Black MD on May 24, 2017 at 22:57 Board Certified Radiologist. This report was verified electronically.
[2017-05-25] VITALS (16 sets, daily range): BP systolic 146–159; BP diastolic 82–94; PULSE 66–98; RESP 14–18; TEMP 98–98.6; O2SAT 95–97
[2017-05-25 06:35] LABS: BASOPHIL % 0.5 % (0.0-2.0); EOSINOPHIL # 0.4 TH/MM3 (0-0.4); HEMATOCRIT 45.6 % (39.0-51.0); HEMOGLOBIN 15.5 GM/DL (13.0-17.0); LYMPH % 23.9 % (9.0-44.0); LYMPHOCYTE # 2.2 TH/MM3 (1.0-4.8); MEAN CELL VOLUME 83.3 FL (80.0-100.0); MEAN CORPUSCULAR HEMOGLOBIN 28.2 PG (27.0-34.0); MEAN CORPUSCULAR HGB CONC 33.9 % (32.0-36.0); MEAN PLATELET VOLUME 9.3 FL (7.0-11.0); MONO % 7.5 % (0.0-8.0); MONOCYTE # 0.7 TH/MM3 (0-0.9); NEUT % 64.1 % (16.0-70.0); PLATELET COUNT 274 TH/MM3 (150-450); RED BLOOD COUNT 5.47 MIL/MM3 (4.50-5.90); RED CELL DISTRIBUTION WIDTH 13.4 % (11.6-17.2); WHITE BLOOD COUNT 9.4 TH/MM3 (4.0-11.0)
[2017-05-25 07:05] LABS: BICARBONATE 27.3 MEQ/L (21.0-32.0); CALCIUM 8.9 MG/DL (8.5-10.1); CREATININE 0.85 MG/DL (0.60-1.30)
[2017-05-25 07:07] LABS: CHOLESTEROL/ HDL RATIO 3.67 RATIO; HDL CHOLESTEROL 34.6 MG/DL (40.0-60.0)
--- NOTE | 2017-05-25 08:33 | MB ---
cc: ROSEY MAHAJAN M.D. DATE OF CONSULTATION 05/24/2017 DATE OF 1965 REASON FOR CONSULTATION Diplopia. HISTORY OF PRESENT ILLNESS A pleasant 51-year-old man with no significant medical history, who comes in with chest pain. He was seen by cardiology and cardiothoracic surgery. He apparently sustained an non-ST elevation UT with a left ventricular apical thrombus and multivessel disease. He was high risk for CABG due to the LV apical thrombus with an EF of 40-45% and it was decided that he would undergo stenting. He was on a heparin drip I am told. He was apparently found to be diabetic with a A1c of 9.4. The patient has undergone cardiac cath. He was found to have left main coronary artery mild luminal irregularities, left anterior descending coronary artery 90% stenosis midsegment, circumflex occluded first obtuse marginal branch, right coronary artery 99% stenosis in the midsegment. Conclusion was severe two-vessel coronary artery disease, LAD and right coronary stenosis. He has undergone successful percutaneous intervention with drug-eluting stent. He was loaded with Plavix as well as oral anticoagulant. The patient complains of diplopia. He had some strange sensation of chest pain before going into the sleep lab technician; I believe he said a few hours prior, but did not develop. He states the diplopia occurred when he came out of anesthesia. No weakness, numbness or tingling in the arms or legs. He had a headache as well. The headache is now resolved with some Tylenol. PHYSICAL EXAMINATION VITAL SIGNS: Temperature 98.6, pulse 90, respiratory rate 16, blood pressure 150/95, satting 97% on room air. NECK: Supple. HEART: Regular. NEUROLOGIC: He is awake and alert, oriented and fluent. Pupils are reactive. He has difficulty with full movement of the right eye. He is unable to move his right eye to the left nasally, however, lateral movements are normal, medial movement is not. Left eye movement is normal, somewhat disconjugate otherwise. He exhibits diplopia to extreme left gaze. When he closes one eye it resolves. The most difficult for the patient is looking towards the left because of inability to move his right eye completely medially. Face is otherwise symmetrical. Tongue is midline. Motor has no drift or leg lag. Cerebellar is normal. Toes downgoing. DTRs are 1+. Gait is withheld. He is at bedrest now. LABORATORY Labs are reviewed. CBC is unremarkable. PTT early in the morning was 42.4. Glucose 148, hemoglobin A1c 9.4, albumin 3.3, cholesterol 165, LDL 109, HDL 34.1, triglycerides 108. Urine with 150 glucose. IMAGING Carotid ultrasound done on 05/21/2017 was nothing significant. Chest x-ray: No acute disease. CT head showed small nonspecific focus of diminished attenuation in the left centrum semiovale of undetermined age. Certainly can be a lacune or demyelinization. The rest of the brain is unremarkable. There is no hemorrhage. IMPRESSION 1. A 51-year-old man with diplopia, possible small lacunar infarct from vascular disease. 2. Coronary artery disease. 3. New diagnosis of what appears to be diabetes. RECOMMENDATIONS The recommendations at this point in time are to obtain a follow-up CAT scan in the morning to see if that attenuation changes. Usually a hypoattenuation of this type is usually chronic, but I want to see if there is any change in any case. Will also get a CT of the [place] and carotids for completion as well, although the last carotid ultrasound was negative. I want to make sure there is no vascular disease. Since he has this apical thrombus I would recommend anticoagulating him if cardiology is okay with it or unless there is some contraindication continue Plavix as well. Physical therapy and occupational therapy evaluation should be initiated. Outpatient follow-up with neurology as well as with ophthalmology. Continue current recommendations as outlined. MD MONISHA Lan/DEJON /8:15 PM /8:14 AM
[2017-05-25] MEDS: MUPIROCIN 2% OINT 1 APPLIC/GM SYR EACH NARE SCH (09:00)
[2017-05-25] MEDS: ATORVASTATIN 40 MG TAB PO SCH (09:02)
[2017-05-25] MEDS: METOPROLOL TARTRATE 25 MG TAB PO SCH (09:02)
[2017-05-25] MEDS: ASPIRIN EC 81 MG TABEC PO SCH (09:03)
[2017-05-25] MEDS: CLOPIDOGREL 75 MG TAB PO SCH (09:03)
[2017-05-25] MEDS: SODIUM CHLORIDE 0.9% FLUSH 10 ML FLUSH IV FLUSH SCH (09:04)
[2017-05-25] MEDS: INSULIN ASPART SUPPLEMENTAL SCALE SQ SCH ×3 (09:04→17:00)
--- NOTE | 2017-05-25 10:02 | RSPPFT ---
DATE OF PROCEDURE: 05/21/17 COMMENTS: VOLUMES DYNAMIC: FVC and FEV1 severely reduced. FLOWS: FEV1% normal; FEF 25-75 moderately reduced. IMPRESSION: This appears to be a predominantly restrictive defect although full lung volumes would be necessary to clarify this. No large airways obstruction and small airways obstruction is noted. Clinical correlation is required.
--- NOTE | 2017-05-25 10:09 | PD.CARD.PN ---
Subjective Subjective Remarks twinges in chest at times but no pain double vision with both eyes open no other focal neurological signs Objective Medications Current Medications Medications (Trade) Dose Ordered Sig/F[place] Route Start Time Stop Time Status Last Admin (Tylenol) 650 mg Q4H PRN PO 05/20/17 15:45 05/20/17 23:26 (Morphine Inj) 2 mg Q4H PRN IV PUSH 05/20/17 15:45 05/24/17 00:16 (Zofran Inj) 4 mg Q8H PRN IV PUSH 05/20/17 15:45 (Ecotrin Ec) 81 mg DAILY PO 05/20/17 18:15 05/25/17 09:03 (Lipitor) 40 mg DAILY PO 05/21/17 09:00 05/25/17 09:02 (Lopressor) 12.5 mg Q12HR PO 05/20/17 21:00 05/25/17 09:02 (Pill Splitter) 1 ea UNSCH PRN OTHER 05/20/17 18:30 (NS Flush) 2 ml BID IV FLUSH 05/21/17 21:00 05/25/17 09:04 (NS Flush) 2 ml UNSCH PRN IV FLUSH 05/21/17 11:00 Papaverine HCl 60 mg/Nitroglycerin 100 mcg/Diltiazem HCl 100 mg/Sodium Chloride 100 ml @ 0 mls/hr HUM[employer] SPECIALIST IRRIGATION 05/21/17 11:00 05/28/17 10:59 Cefazolin Sodium 500 mg/Sodium Chloride 505 ml @ 0 mls/hr H[employer] SPECIALIST IRRIGATION 05/21/17 11:00 05/28/17 10:59 Cefazolin Sodium 2000 mg/Sodium Chloride 100 ml @ 200 mls/hr HUM[employer] SPECIALIST IV 05/21/17 11:00 05/28/17 10:59 (Lopressor) 12.5 mg HUM[employer] RESOURCES SPECIALIST PO 05/21/17 11:00 05/28/17 10:59 (Bactroban Nasal 2% Oint) 1 applic BID EACH NARE 05/21/17 21:00 05/26/17 20:59 05/23/17 20:02 (Hibiclens 4% Top Soln) 1 applic HUM[employer] RES[employer] SPECIALIST TOPICAL 05/21/17 11:00 05/28/17 10:59 Insulin Human Regular 100 units/ Sodium Chloride 100 ml @ 3 mls/hr TITRATE PRN IV 05/21/17 11:00 05/28/17 10:59 (D50w (Vial) Inj) 50 ml UNSCH PRN IV PUSH 05/21/17 11:00 (Whiteclay 5-325 Mg) 1 tab Q6H PRN PO 05/21/17 11:30 05/21/17 17:11 Heparin Sodium/ Dextrose 250 ml @ 10 mls/hr TITRATE PRN IV 05/21/17 15:30 05/23/17 01:51 (D50w (Vial) Inj) 50 ml UNSCH PRN IV PUSH 05/22/17 10:30 (Glucagon Inj) 1 mg UNSCH PRN OTHER 05/22/17 10:30 (NovoLOG SUPPLEMENTAL SCALE) 1 ACHS SLIDING SCALE SQ 05/23/17 12:00 05/25/17 09:04 (Plavix) 75 mg DAILY PO 05/24/17 09:00 05/25/17 09:03 (Ativan Inj) 0.5 mg UNSCH PRN IV PUSH 05/24/17 12:15 05/25/17 12:14 (Atropine Inj) 0.5 mg UNSCH PRN IV PUSH 05/24/17 12:15 (Xylocaine 1% Inj (50 ml)) 10 ml UNSCH PRN INFIL 05/24/17 12:15 05/25/17 12:14 (Tylenol) 650 mg Q8H PRN PO 05/24/17 17:00 05/24/17 18:00 Vital Signs / I&O Vital Signs Date Time Temp Pulse Resp B/P (MAP) Pulse Ox O2 Delivery O2 Flow Rate FiO2 05/25/17 08:05 98.5 78 16 156/94 (114) 97 05/25/17 06:00 66 05/25/17 05:00 71 05/25/17 04:00 77 05/25/17 03:00 98.1 79 16 146/82 (103) 95 05/25/17 03:00 68 05/25/17 02:00 66 05/25/17 01:00 66 05/25/17 00:00 73 05/24/17 23:00 80 05/24/17 23:00 98.7 80 16 123/74 (90) 97 05/24/17 22:00 66 05/24/17 21:00 70 05/24/17 20:00 84 05/24/17 20:00 98.9 87 16 154/89 (110) 97 05/24/17 20:00 97 Room Air 05/24/17 19:00 88 05/24/17 18:15 16 05/24/17 18:00 90 05/24/17 17:00 89 05/24/17 16:00 86 05/24/17 15:00 98.6 75 14 150/95 (113) 97 05/24/17 15:00 81 05/24/17 14:00 83 05/24/17 13:00 72 05/24/17 12:00 65 05/24/17 11:00 76 I/O 05/24/17 05/24/17 05/24/17 05/25/17 05/25/17 05/25/17 07:00 15:00 23:00 07:00 15:00 23:00 Intake Total 720 ml 600 ml 920 ml Output Total 1000 ml 1100 ml 1150 ml Balance -280 ml -500 ml -230 ml Intake Oral 720 ml 600 ml 920 ml Output Urine Total 1000 ml 1100 ml 1150 ml # Bowel Movements 0 0 Physical Exam EYES: No scleral icterus. right eye deviation to right NECK: Supple, trachea midline. No JVD or lymphadenopathy. CARDIOVASCULAR: Regular rate and rhythm without murmurs, gallops, or rubs. RESPIRATORY: Breath sounds equal bilaterally. No accessory muscle use. GASTROINTESTINAL: Abdomen soft, non-tender, nondistended. MUSCULOSKELETAL: No cyanosis, or edema. BACK: Nontender without obvious deformity. No CVA tenderness. Laboratory Laboratory Tests Test 05/24/17 13:44 05/25/17 04:41 Platelet Function P2Y12 React Units 107 PRU White Blood Count 9.4 TH/MM3 Red Blood Count 5.47 MIL/MM3 Hemoglobin 15.5 GM/DL Hematocrit 45.6 % Mean Corpuscular Volume 83.3 FL Mean Corpuscular Hemoglobin 28.2 PG Mean Corpuscular Hemoglobin Concent 33.9 % Red Cell Distribution Width 13.4 % Platelet Count 274 TH/MM3 Mean Platelet Volume 9.3 FL Neutrophils (%) (Auto) 64.1 % Lymphocytes (%) (Auto) 23.9 % Monocytes (%) (Auto) 7.5 % Eosinophils (%) (Auto) 4.0 % Basophils (%) (Auto) 0.5 % Neutrophils # (Auto) 6.0 TH/MM3 Lymphocytes # (Auto) 2.2 TH/MM3 Monocytes # (Auto) 0.7 TH/MM3 Eosinophils # (Auto) 0.4 TH/MM3 Basophils # (Auto) 0.0 TH/MM3 CBC Comment DIFF FINAL Differential Comment Blood Urea Nitrogen 11 MG/DL Creatinine 0.85 MG/DL Random Glucose 172 MG/DL Calcium Level 8.9 MG/DL Sodium Level 136 MEQ/L Potassium Level 4.0 MEQ/L Chloride Level 102 MEQ/L Carbon Dioxide Level 27.3 MEQ/L Anion Gap 7 MEQ/L Estimat Glomerular Filtration Rate 95 ML/MIN Total Creatine Kinase 98 U/L Triglycerides Level 101 MG/DL Cholesterol Level 127 MG/DL LDL Cholesterol 72 MG/DL HDL Cholesterol 34.6 MG/DL Cholesterol/HDL Ratio 3.67 RATIO Imaging Last Impressions Head CT 05/24/17 0000 Signed Impressions: Service Date/Time: Wednesday, May 24, 2017 17:11 - CONCLUSION: Small nonspecific focus of diminished attenuation in the left centrum semiovale. Jayden Jordan MD Foot X-Ray 05/24/17 0000 Signed Impressions: Service Date/Time: Wednesday, May 24, 2017 22:47 - CONCLUSION: 1. No acute fracture or joint dislocation. 2. Degenerative changes are seen involving the foot. 3. Heel spur. Emmanuel Black MD Chest X-Ray 05/22/17 0000 Signed Impressions: Service Date/Time: Monday, May 22, 2017 12:11 - CONCLUSION: No acute disease. Amilcar Aguilar MD Lower Extremity Ultrasound 05/21/17 0000 Signed Impressions: Service Date/Time: Sunday, May 21, 2017 11:34 - CONCLUSION: 1. Lower extremity mapping, as above. Ruben Brody MD Carotid Artery Ultrasound 05/21/17 0000 Signed Impressions: Service Date/Time: Sunday, May 21, 2017 11:53 - CONCLUSION: 1. No significant atherosclerotic disease or stenosis is present within either internal carotid artery. 2. There is antegrade flow in both vertebral arteries. Jayden Messina MD Assessment and Plan Problem List: (1) NSTEMI (non-ST elevated myocardial infarction) ICD Codes: I21.4 - Non-ST elevation (NSTEMI) myocardial infarction Assessment and Plan Severe CAD - PCI LAD and RCA. asa plavix statin bb APICAL LV Thrombus - start oral anticoagulant. [place] should have assistance program for uninsured. double vision - CT negative. no definitive evidence for CVA. ?anesthesia. appreciate neuro assistance. right eye patch. outpatient opthalmology appointment. [place] today. 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 DC planning either later today or tomorrow pending results Bladimir New MD May 25, 2017 10:09
--- NOTE | 2017-05-25 11:47 | HHI.PR ---
Subjective Remarks Patient at the margin of the bed. Denies chest pain at this time. No much pain overnight. Says he has blurry vision after cardiac cath yesterday. Neuro ff. Objective Vitals Vital Signs Date Time Temp Pulse Resp B/P (MAP) Pulse Ox O2 Delivery O2 Flow Rate FiO2 05/25/17 10:19 78 05/25/17 08:05 98.5 78 16 156/94 (114) 97 05/25/17 08:00 Room Air 2.00 05/25/17 06:00 66 05/25/17 05:00 71 05/25/17 04:00 77 05/25/17 03:00 98.1 79 16 146/82 (103) 95 05/25/17 03:00 68 05/25/17 02:00 66 05/25/17 01:00 66 05/25/17 00:00 73 05/24/17 23:00 80 05/24/17 23:00 98.7 80 16 123/74 (90) 97 05/24/17 22:00 66 05/24/17 21:00 70 05/24/17 20:00 84 05/24/17 20:00 98.9 87 16 154/89 (110) 97 05/24/17 20:00 97 Room Air 05/24/17 19:00 88 05/24/17 18:15 16 05/24/17 18:00 90 05/24/17 17:00 89 05/24/17 16:00 86 05/24/17 15:00 98.6 75 14 150/95 (113) 97 05/24/17 15:00 81 05/24/17 14:00 83 05/24/17 13:00 72 05/24/17 12:00 65 I/O 05/24/17 05/24/17 05/24/17 05/25/17 05/25/17 05/25/17 07:00 15:00 23:00 07:00 15:00 23:00 Intake Total 720 ml 600 ml 920 ml Output Total 1000 ml 1100 ml 1150 ml Balance -280 ml -500 ml -230 ml Intake Oral 720 ml 600 ml 920 ml Output Urine Total 1000 ml 1100 ml 1150 ml # Bowel Movements 0 0 Result Diagram: 05/25/17 0441 05/25/17 0441 Imaging Last Impressions Head CT 05/24/17 Signed Impressions: Service Date/Time: Wednesday, May 24, 2017 17:11 - CONCLUSION: Small nonspecific focus of diminished attenuation in the left centrum semiovale. Jayden Jordan MD Foot X-Ray 05/24/17 0000 Signed Impressions: Service Date/Time: Wednesday, May 24, 2017 22:47 - CONCLUSION: 1. No acute fracture or joint dislocation. 2. Degenerative changes are seen involving the foot. 3. Heel spur. Emmanuel Black MD Chest X-Ray 05/22/17 Signed Impressions: Service Date/Time: Monday, May 22, 2017 12:11 - CONCLUSION: No acute disease. Amilcar Aguilar MD Lower Extremity Ultrasound 05/21/17 Signed Impressions: Service Date/Time: Sunday, May 21, 2017 11:34 - CONCLUSION: 1. Lower extremity mapping, as above. Ruben Brody MD Carotid Artery Ultrasound 05/21/17 Signed Impressions: Service Date/Time: Sunday, May 21, 2017 11:53 - CONCLUSION: 1. No significant atherosclerotic disease or stenosis is present within either internal carotid artery. 2. There is antegrade flow in both vertebral arteries. Jayden Messina MD Objective Remarks GENERAL: This is a well-nourished, well-developed patient, in no apparent distress. CARDIOVASCULAR: Regular rate and rhythm without murmurs, gallops, or rubs. RESPIRATORY: Clear to auscultation. Breath sounds equal bilaterally. No wheezes , rales, or rhonchi. GASTROINTESTINAL: Abdomen soft, non-tender, nondistended. No hepato-splenomegaly , or palpable masses. No guarding. MUSCULOSKELETAL: Right foot pain tenderness on palpation. Extremities without clubbing, cyanosis, or edema. No joint tenderness, effusion, or edema noted. No calf tenderness. Negative Homans sign bilaterally. NEUROLOGICAL: Awake and alert. Cranial nerves II through XII intact. Motor and sensory grossly within normal limits. Five out of 5 muscle strength in all muscle groups. Normal speech. A/P Problem List: (1) NSTEMI (non-ST elevated myocardial infarction) ICD Code: I21.4 - Non-ST elevation (NSTEMI) myocardial infarction Assessment and Plan NSTEMI Left Ventricular Apical thrombus EKG: sinus rhythm with T inversion in [place]-lateral leads. Continue with heparin drip- will add aspirin and low-dose BB- Continue on nitro and morphine for chest pain. Cardiology consulted and plan for cardiac cath 05/21/17 With multiple vessel disease patient is CABG. Cardiothoracic surgeon was consulted. Per CTS high risk for CABG at this time as patient with LV apical thrombus. Cardiology ff, plan for high risk PCI on Wednesday. ECHO reviewed and discussed with the patient, EF 40-45 %, LV apical clot with potential for distal embolization and possible stroke during CABG surgery per Dr Perrin CTS. Ideally, he would need 4-6 weeks of anticoagulation therapy to allow the clot to organize or dissolve prior to proceeding with CABG, however, given his coronary anatomy, presenting NSTEMI and ongoing symptoms. Per Dr Perrin option of proceeding with CABG or performing PCI to LAD & RCA. Patient wishes to proceed with PCI to avoid the risk of operative stroke/embolization during surgery. Dr. New cardiology following also plan for PCI 05/24/17 On heparin drip Lipid panel reviewed, start statin Blurry vision: consult neurology CT scan head reviewed no hemorrhagic stroke however questionable stroke. Can't have MRI. Per cardio can have CTA [place] if need. Neurology ff. Uncontrolled diabetes mellitus with A1C of 9.4. Insulin sliding scale, Accu- Cheks. electronics test engineer, dietary consult. Discussed with the patient length plan. We might consider starting long acting insulin Levemir however patient with ongoing tests/procedures, on ISS for now , monitor BS Right foot pain says it hurts when he is walking. Had US and negative for DVT. Ordered x rays reviewed no fracture. -DVT prophylaxis: on heparin drip. Discussed Condition With patient, nurse DC cleared by cardiology for DC patient will be DC on Savaysa as anticoagulant per Dr Goins , CM to give discount card. DC when cleared by neurology Valencia Byrnes MD May 25, 2017 11:46
[2017-05-25] MEDS ORDERED: EDOXABAN TOSYLATE 60 MG TAB PO SCH (12:00)
[2017-05-25] MEDS ORDERED: EDOX1TAB5 PO (15:01)
[2017-05-25] MEDS ORDERED: ATOR40TA16 PO (15:01)
[2017-05-25] MEDS ORDERED: ECASA81 PO (15:01)
[2017-05-25] MEDS ORDERED: METO25TA3 PO (15:01)
[2017-05-25] MEDS ORDERED: ISOS30TA3 PO (15:01)
[2017-05-25] MEDS ORDERED: PLAV75TA29 PO (15:01)
[2017-05-25] MEDS ORDERED: BIOM30MI (15:03)
[2017-05-25] MEDS ORDERED: LANCETS1 MI1 (15:03)
[2017-05-25] MEDS ORDERED: GLUCKIT15 (15:03)
[2017-05-25] MEDS ORDERED: INSU1MIS15 (15:03)
[2017-05-25] MEDS ORDERED: LEVEMIR SQ (15:03)
[2017-05-25] MEDS ORDERED: GLUCTES12 (15:03)
--- NOTE | 2017-05-25 15:03 | HHI.DS ---
Discharge Summary Admission Date May 20, 2017 at 14:56 Discharge Date: May 25, 2017 Admitting Diagnosis NSTEMI (1) NSTEMI (non-ST elevated myocardial infarction) ICD Code: I21.4 - Non-ST elevation (NSTEMI) myocardial infarction Diagnosis: Principal Procedures cardiac cath x 2 Brief History - From Admission patient is a 51 y/p male with no significant past medical history who presented to ER with chest pain. he says that the pain started yesterday. pain was midsternal, pressure-type and constant and was associated with some numbness and tingling of both hands. he had some blurred vision with no nausea,vomiting or diaphoresis. he says that he took an aspirin yesterday evening which gradually subsided however this morning when he was going to work he started to have chest pain again which made him to come to ER. CBC/BMP: 05/25/17 0441 05/25/17 0441 Significant Findings Laboratory Tests Test 05/22/17 18:57 05/23/17 01:14 05/23/17 07:10 05/23/17 19:53 Activated Partial Thromboplast Time 34.9 SEC (24.3-30.1) 35.4 SEC (24.3-30.1) 36.5 SEC (24.3-30.1) 41.1 SEC (24.3-30.1) Random Glucose 148 MG/DL (74-106) Total Protein 8.8 GM/DL (6.4-8.2) Albumin 3.3 GM/DL (3.4-5.0) Alkaline Phosphatase 118 U/L (45-117) Test 05/24/17 02:40 05/24/17 13:44 05/25/17 04:41 Activated Partial Thromboplast Time 42.4 SEC (24.3-30.1) Platelet Function P2Y12 React Units 107 PRU (194-418) Random Glucose 172 MG/DL (74-106) HDL Cholesterol 34.6 MG/DL (40.0-60.0) Imaging Last Impressions Head CT 05/24/17 0000 Signed Impressions: Service Date/Time: Wednesday, May 24, 2017 17:11 - CONCLUSION: Small nonspecific focus of diminished attenuation in the left centrum semiovale. Jayden Jordan MD Foot X-Ray 05/24/17 0000 Signed Impressions: Service Date/Time: Wednesday, May 24, 2017 22:47 - CONCLUSION: 1. No acute fracture or joint dislocation. 2. Degenerative changes are seen involving the foot. 3. Heel spur. Emmanuel Black MD Chest X-Ray 05/22/17 0000 Signed Impressions: Service Date/Time: Monday, May 22, 2017 12:11 - CONCLUSION: No acute disease. Amilcar Aguilar MD Lower Extremity Ultrasound 05/21/17 0000 Signed Impressions: Service Date/Time: Sunday, May 21, 2017 11:34 - CONCLUSION: 1. Lower extremity mapping, as above. Ruben Brody MD Carotid Artery Ultrasound 05/21/17 0000 Signed Impressions: Service Date/Time: Sunday, May 21, 2017 11:53 - CONCLUSION: 1. No significant atherosclerotic disease or stenosis is present within either internal carotid artery. 2. There is antegrade flow in both vertebral arteries. Jayden Messina MD PE at Discharge GENERAL: This is a well-nourished, well-developed patient, in no apparent distress. CARDIOVASCULAR: Regular rate and rhythm without murmurs, gallops, or rubs. RESPIRATORY: Clear to auscultation. Breath sounds equal bilaterally. No wheezes , rales, or rhonchi. GASTROINTESTINAL: Abdomen soft, non-tender, nondistended. No hepato-splenomegaly , or palpable masses. No guarding. MUSCULOSKELETAL: Right foot pain tenderness on palpation. Extremities without clubbing, cyanosis, or edema. No joint tenderness, effusion, or edema noted. No calf tenderness. Negative Homans sign bilaterally. NEUROLOGICAL: Awake and alert. Cranial nerves II through XII intact. Motor and sensory grossly within normal limits. Five out of 5 muscle strength in all muscle groups. Normal speech. Hospital Course (1) NSTEMI (non-ST elevated myocardial infarction) ICD Code: I21.4 - Non-ST elevation (NSTEMI) myocardial infarction Assessment and Plan NSTEMI Left Ventricular Apical thrombus EKG: sinus rhythm with T inversion in salomón-lateral leads. Continue with heparin drip- will add aspirin and low-dose BB- Continue on nitro and morphine for chest pain. Cardiology consulted and plan for cardiac cath 05/21/17 With multiple vessel disease patient is CABG. Cardiothoracic surgeon was consulted. Per CTS high risk for CABG at this time as patient with LV apical thrombus. Cardiology ff, plan for high risk PCI on Wednesday. ECHO reviewed and discussed with the patient, EF 40-45 %, LV apical clot with potential for distal embolization and possible stroke during CABG surgery per Dr Perrin CTS. Ideally, he would need 4-6 weeks of anticoagulation therapy to allow the clot to organize or dissolve prior to proceeding with CABG, however, given his coronary anatomy, presenting NSTEMI and ongoing symptoms. Per Dr Perrin option of proceeding with CABG or performing PCI to LAD & RCA. Patient wishes to proceed with PCI to avoid the risk of operative stroke/embolization during surgery. Dr. New cardiology following also plan for PCI 05/24/17 On heparin drip Lipid panel reviewed, start statin Blurry vision: consult neurology CT scan head reviewed no hemorrhagic stroke however questionable stroke. Can't have MRI. Per cardio can have CTA [place] if need, however will not supervisor records change. Neurology ff. Cleared pt for DC. Uncontrolled diabetes mellitus with A1C of 9.4. Insulin sliding scale, Accu- Cheks. asthma educator, dietary consult. Discussed with the patient length plan. We might consider starting long acting insulin Levemir however patient with ongoing tests/procedures, on ISS for now , monitor BS Right foot pain says it hurts when he is walking. Had US and negative for DVT. Ordered x rays reviewed no fracture. -DVT prophylaxis: on heparin drip. Discussed Condition With patient, nurse DC cleared by cardiology for DC patient will be DC on Savaysa as anticoagulant per Dr Goins , CM to give discount card. Cleared by neuro and cardiology/ To follow up as OP with PCP and consultants. Pt Condition on Discharge: Stable Discharge Disposition: Discharge Home Discharge Time: > 30 minutes Discharge Instructions DIET: Follow Instructions for: Heart Healthy Diet, Diabetic Diet Activities you can perform: Regular-No Restrictions Follow up Referrals: Cardiology, Interventional @ [facility] Cardiology with Bladimir New MD Neurology - 1 Week PCP Follow-up - 2-3 Days New Medications: Blood Glucose Monitoring W/Device (Glucocom Blood Glucose Mo W/Device) 1 Kit Kit KIT .XX DIRECTED for Blood Sugar Management, #1 Glucocom Test Strips (Glucocom Test Strips) 1 Ml Ml EA .XX DIRECTED for Blood Sugar Management, #1 Insulin Detemir Inj (Levemir Inj) 1,000 unit/ 10 ML Vial 10 UNITS SQ HS for Blood Sugar Management, #30 VIAL 0 Refills Do not mix with any other Insulin. Insulin Syringe/U-100/31G X 5/16" 1 ml (Insulin Syringe/U-100/31G X 5/16" 1 ml) 31 Gauge X 5/16" Mis EA .XX DIRECTED for Blood Sugar Management, #1 0 Refills Lancets (Lancets) 1 Mis Mis EA .XX DIRECTED for Blood Sugar Management, #1 0 Refills Parenteral Therapy Supplies (Sharpsafety Sharps Contai) 1 Mis Mis EA .XX DIRECTED, #[address] (Aspirin DR) 81 Mg Tabdr 81 MG PO DAILY for Blood Clot Prevention, #30 TAB Atorvastatin (Atorvastatin) 40 Mg Tab 40 MG PO DAILY for Cholesterol Management, #60 TAB Clopidogrel (Plavix) 75 Mg Tab 75 MG PO DAILY for Blood Clot Prevention, #90 TAB Edoxaban (Savaysa) 60 Mg Tab 60 MG PO DAILY for Blood Clot Prevention, #90 TAB Isosorbide Mononitrate ER (Isosorbide Mononitrate ER) 30 Mg Sin 30 MG PO DAILY@07 for Blood Pressure Management, #60 TAB Metoprolol Tartrate (Metoprolol Tartrate) 25 Mg Tab 12.5 MG PO Q12HR for Blood Pressure Management, #120 TAB Valencia Byrnes MD May 25, 2017 15:03
[2017-05-25] MEDS ORDERED: IOHEXOL 350 MG/ML 10 ML VIAL (for RAD DIAG) IVCONTRAST ONE (15:40)
--- NOTE | 2017-05-25 15:55 | EKG ---
Date Performed: 05/25/2017 Time Performed: 07:15:32 PTAGE: 51 years EKG: Sinus rhythm . Left axis deviation Anterolateral ST-T changes may be due to myocardial ischemia Abnormal ECG Since the prior tracing, there has been no significant change PREVIOUS TRACING : 05/22/2017 05.14 DOCTOR: Rashi Luo Interpretating Date/Time 05/25/2017 15:55:16
--- NOTE | 2017-05-25 17:10 | RADRPT ---
EXAM DATE/TIME: 05/25/2017 15:21 [facility] COMPARISON: CT BRAIN W/O CONTRAST, May 24, 2017, 17:11. INDICATIONS : Stroke symptoms, double vision. RADIATION DOSE: 41.90 CTDIvol (mGy) MEDICAL HISTORY : None SURGICAL HISTORY : None. ENCOUNTER: Subsequent ACUITY: 2 days PAIN SCALE: Non-responsive LOCATION: cranial TECHNIQUE: Multiple contiguous axial images were obtained of the head. Using automated exposure control and adj ustment of the mA and/or kV according to patient size, radiation dose was kept as low as reasonably a chievable to obtain optimal diagnostic quality images. DICOM format image data is available electro nically for review and comparison. FINDINGS: CEREBRUM: The ventricles are normal for age. No evidence of midline shift, mass lesion, hemorrhage or acute in farction. No extra-axial fluid collections are seen. POSTERIOR FOSSA: The cerebellum and brainstem are intact. The 4th ventricle is midline. The cerebellopontine angle i s unremarkable. EXTRACRANIAL: The visualized portion of the orbits is intact. SKULL: The calvaria is intact. No evidence of skull fracture. CONCLUSION: No evidence of acute infarct. Stable hypodensity in the periventricular white matter on the left . Si judy Gary MD on May 25, 2017 at 17:07 Board Certified Radiologist. This report was verified electronically.
--- NOTE | 2017-05-25 17:13 | RADRPT ---
EXAM DATE/TIME: 05/25/2017 15:21 [facility] COMPARISON: No previous studies available for comparison. INDICATIONS : Stroke symptoms, double vision. IV CONTRAST: 71 cc Omnipaque 350 (iohexol) IV RADIATION DOSE: 28.33 CTDIvol (mGy) ; Combined studies MEDICAL HISTORY : None SURGICAL HISTORY : None. ENCOUNTER: Initial ACUITY: 2 days PAIN SCALE: Non-responsive LOCATION: cranial TECHNIQUE: Volumetric scanning was performed using a multi-row detector CT scanner. The data was post processed with a variety of visualization algorithms including full volume maximum intensity projection, multi -planar sliding thin slab reformation, curved planar reformation, and surface rendering techniques. Using automated exposure control and adjustment of the mA and/or kV according to patient size, radiat ion dose was kept as low as reasonably achievable to obtain optimal diagnostic quality images. DICO M format image data is available electronically for review and comparison. FINDINGS: There is excellent visualization of the major intracranial arteries out to the second-order branch ve ssels. There is no evidence for aneurysm, vessel truncation or stenosis, and no evidence for vascula r malformation. Examination of posterior fossa also demonstrates no evidence of aneurysm or vascular malformation. Th e vertebral arteries are codominant. There is a patent posterior communicating artery on the right. CONCLUSION: 1. Unremarkable CT angiography of the brain. Wade Gary MD on May 25, 2017 at 17:08 Board Certified Radiologist. This report was verified electronically.
--- NOTE | 2017-05-25 17:14 | RADRPT ---
EXAM DATE/TIME: 05/25/2017 15:21 [facility] COMPARISON: No previous studies available for comparison. INDICATIONS : Stroke symptoms, double vision. IV CONTRAST: 71 cc Omnipaque 350 (iohexol) IV RADIATION DOSE: 28.33 CTDIvol (mGy) ; Combined studies MEDICAL HISTORY : None SURGICAL HISTORY : None. ENCOUNTER: Subsequent ACUITY: 2 days PAIN SCALE: Non-responsive LOCATION: carotids Elevated flow velocities and ICA/CCA ratios have been found to correlate with increased degrees of vessel stenosis, calculated as percentage of diameter relative to a normal segment of distal ICA/CCA. TECHNIQUE: Volumetric scanning was performed using a multirow detector CT scanner. The data was post processed with a variety of visualization algorithms including full-volume maximum intensity projection, multip lanar sliding thin-slab reformation, curved-planar reformation, and surface-rendering techniques. Us ing automated exposure control and adjustment of the mA and/or kV according to patient size, radiatio n dose was kept as low as reasonably achievable to obtain optimal diagnostic quality images. DICOM f ormat image data is available electronically for review and comparison. FINDINGS: AORTIC ARCH: There is a three-vessel origin of the great vessels from the aorta. No evidence of ostial narrowing. RIGHT CAROTID: The common carotid artery is intact. The carotid bulb has a normal configuration without ulceration o r narrowing. The internal carotid artery lumen is smooth without stenosis. The external carotid kalie ry is intact. LEFT CAROTID: The common carotid artery is intact. The carotid bulb has a normal configuration without ulceration or narrowing. The internal carotid artery lumen is smooth without stenosis. The external carotid ar francine is intact. VERTEBRALS: The vertebral arteries have a symmetric diameter. No stenotic lesions are seen. CONCLUSION: 1. Negative CT angiography of the cervicobrachial arteries Wade Gary MD on May 25, 2017 at 17:11 Board Certified Radiologist. This report was verified electronically.
[2017-05-26] MEDS ORDERED: ISOSORBIDE MONONITRATE 30 MG TAB PO SCH (07:00)
== END 2017-05-25 18:44 | disposition home or self-care (01) | DRG 247 ==
LOC: NEDDLT 14:46 → HCIS 14:56
PROVIDERS: ADMIT Hospitalist; ATTEND Hospitalist
PROC: 4A023N7 Measurement of Cardiac Sampling and Pressure, Left Heart, Percutaneous Approach (ICD-10-PCS; 2017-05-21)
PROC: B2111ZZ Fluoroscopy of Multiple Coronary Arteries using Low Osmolar Contrast (ICD-10-PCS; 2017-05-21)
PROC: B2111ZZ Fluoroscopy of Multiple Coronary Arteries using Low Osmolar Contrast (ICD-10-PCS; 2017-05-24)
PROC: 027135Z Dilation of Coronary Artery, Two Arteries with Two Drug-eluting Intraluminal Devices, Percutaneous Approach (ICD-10-PCS; principal; 2017-05-24 10:00)
DX: I21.4 Non-ST elevation (NSTEMI) myocardial infarction (principal); E11.65 Type 2 diabetes mellitus with hyperglycemia; H53.2 Diplopia; H53.8 Other visual disturbances; Z82.49 Family history of ischemic heart disease and other diseases of the circulatory system; I25.110 Atherosclerotic heart disease of native coronary artery with unstable angina pectoris; R51 Headache; M25.511 Pain in right shoulder; R10.13 Epigastric pain; M79.671 Pain in right foot; Z86.73 Personal history of transient ischemic attack (TIA), and cerebral infarction without residual deficits
CPT/HCPCS: 70450; 70496; 70498; 71045; 71046; 73630; 80048; 80053; 80061; 80076; 81001; 82272; 82550; 82552; 82948; 83036; 83735; 84484; 85002; 85025; 85027; 85576; 85610; 85730; 86850; 86900; 86901; 86920; 87641; 92929; 92933; 93005; 93306; 93454; 93458; 93880; 93970; 93998; 94150; 99152; 99153; C1714; C1725; C1769; C1874; C1887; C1893; J0153; J1644; J1815; J2250; J2270; J3010; J7030; Q9967